=== PATIENT | female | born 1970 | race Two or more races ===

== ENCOUNTER 2024-07-06 09:34 | Inpatient (IN) | payer MEDICAID, SELFPAY ==
[2024-07-06] VITALS (7 sets, daily range): BP systolic 87–173; BP diastolic 46–91; PULSE 99–119; RESP 15–22; TEMP 36.9–39.5; O2SAT 94–100; BMI 49.3; BMI 54.0
--- NOTE | 2024-07-06 09:54 | PD.EDSKIN ---
ED Skin Abcess FB-RME/HPI General Chief complaint: Skin/Abscess/Foreign Body Stated complaint: Boil in private are for 7 days Time Seen by Provider: 07/06/24 09:44 Source: patient Arrival date/time: 07/06/24 09:34 54-year-old female with a history of hypertension and type 2 diabetes presents to the emergency room with a chief complaint of a boil in her vaginal area x 7 days Mode of arrival: ambulatory Limitations: no limitations Related Data Home Medications ?Medication ?Instructions ?Recorded ?Confirmed hydrochlorothiazide 25 mg tablet 25 mg PO QDAY 02/20/18 10/03/20 carvedilol 3.125 mg tablet 3.125 mg PO BID 06/15/20 10/03/20 ergocalciferol (vitamin D2) 1,250 1,250 mcg PO QWEEK 06/15/20 10/03/20 mcg (50,000 unit) capsule (Vitamin D2) metformin 500 mg tablet 500 mg PO QDAY 06/15/20 10/03/20 gabapentin 800 mg tablet 800 mg PO TID 10/03/20 10/03/20 Previous Rx's ?Medication ?Instructions ?Recorded ibuprofen 800 mg tablet 800 mg PO TID PRN pain #30 tabs 03/05/24 Allergies Allergy/AdvReac Type Severity Reaction Status Date / Time iodine Allergy Intermediate chest Verified 07/06/24 09:36 tightness, headache Review of Systems Review of Systems Systems Reviewed: All systems reviewed, normal except as documented Constitutional Constitutional: Reports system reviewed and no additional complaints, except as documented, Denies fatigue, Denies fever(s), Denies headache(s) and Denies weakness Eyes Eyes: Reports system reviewed and no additional complaints, except as documented, Denies blurry vision and Denies change in vision ENT Ears, Nose, Mouth, and Throat: Reports system reviewed and no additional complaints, except as documented, Denies otalgia, Denies headache(s), Denies nasal congestion, Denies throat swelling and Denies vertigo Cardiovascular Cardiovascular: Reports system reviewed and no additional complaints, except as documented, Denies chest pain, Denies dyspnea and Denies dyspnea on exertion Respiratory Respiratory: Reports system reviewed and no additional complaints, except as documented, Denies chest congestion, Denies cough, Denies dyspnea, Denies dyspnea on exertion and Denies wheezing Gastrointestinal Gastrointestinal: Reports system reviewed and no additional complaints, except as documented, Denies abdominal pain, Denies cramping, Denies nausea and Denies vomiting Genitourinary Genitourinary: Reports system reviewed and no additional complaints, except as documented, Reports pelvic pain, Reports vaginal discharge and Reports vaginal pruritus Musculoskeletal Musculoskeletal: Reports system reviewed and no additional complaints, except as documented and Denies back pain Integumentary/Breasts Skin/Breast: Reports system reviewed and no additional complaints, except as documented and Denies wounds Neurologic Neurologic: Reports system reviewed and no additional complaints, except as documented, Denies confusion, Denies headache(s), Denies lack of coordination, Denies vertigo and Denies weakness Psychiatric Psychiatric: Reports system reviewed and no additional complaints, except as documented, Denies anxiety, Denies confusion, Denies depression, Denies paranoia, Denies suicidal ideation and Denies tactile hallucinations Endocrine Endocrine: Reports system reviewed and no additional complaints, except as documented and Denies fatigue Hematologic/Lymphatic Hematologic/Lymphatic: Reports system reviewed and no additional complaints, except as documented and Denies lymphadenopathy Allergic/Immunologic Allergic/Immunologic: Reports system reviewed and no additional complaints, except as documented, Denies throat swelling, Denies urticaria and Denies wheezing ED Exam General Limitations: Present no limitations General appearance: Present alert and in no apparent distress Head Head exam: Present atraumatic Eye Eye exam: Present normal appearance, PERRL and EOMI ENT ENT exam: Present normal exam, normal oropharynx and mucous membranes moist Neck Neck exam: Present normal inspection, full ROM and trachea midline Chest Chest inspection: Present normal inspection and symmetric chest wall rise Respiratory Respiratory exam: Present normal lung sounds bilaterally Cardiovascular Cardiovascular exam: Present regular rate, normal rhythm and normal heart sounds Abdominal Exam Abdominal exam: Present soft and normal bowel sounds External exam: Present erythema and tenderness Expanded Exam OB exam: Present vulvar erythema, vulvar tenderness and other (Bartholin cyst) Extremities Exam Extremities exam: Present normal inspection and full ROM Back Exam Back exam: Present normal inspection and full ROM Neurological Exam Neurological exam: Present alert, oriented X3 and CN II-XII intact Psychiatric Psychiatric exam: Present normal affect and normal mood Skin Skin exam: Present warm, dry, intact and normal color Course Quality Measures Possible source: skin/soft tissue Blood cultures ordered: completed in ED Antibiotic ordered: Yes Pertinent labs: 07/06/24 11:32 Lactic Acid 2.3 H mMol/L (0.4-2.0) Procalcitonin 0.31 ng/ml (0.0-0.49) sepsis Orders Category Date Time Status COVID-19 Screening Questionnaire NOW Care 07/06/24 14:15 Active Decision to Admit X1 Care 07/06/24 14:15 Active Insert IV NOW Care 07/06/24 11:09 Active Consult to Gynecology Stat Cons 07/06/24 13:50 Ordered Consult to Gynecology Stat Cons 07/06/24 14:15 Ordered US soft tissue lower back abd Stat Exams 07/06/24 11:36 Completed Blood Culture (Lab) Stat Lab 07/06/24 11:32 Received CBC Stat Lab 07/06/24 11:32 Completed CMP [Comprehensive Metabolic Panel] Stat Lab 07/06/24 11:32 Completed Hemoglobin A1C [Glycohemoglobin w (eAG)] Stat Lab 07/06/24 11:32 Completed Lactate (Lactic Acid) Stat Lab 07/06/24 11:32 Completed Lactate (Lactic Acid) Stat Lab 07/06/24 14:16 Ordered Lactic Acid, 3 HR Stat Lab 07/06/24 14:42 Ordered Procalcitonin Stat Lab 07/06/24 11:32 Completed UA [Urinalysis] Stat Lab 07/06/24 10:55 Ordered Urine Culture Stat Lab 07/06/24 10:55 Ordered HYDROcodone*/APAP 5/325 [Berkley 5/325] Med 07/06/24 10:39 Discontinued 1 tab PO X1 ONE Ibuprofen Tab [Motrin Tab] Med 07/06/24 10:54 Discontinued 800 mg PO X1 ONE Lidocaine 1% 20 ml [Xylocaine 1% 20 ML] Med 07/06/24 09:52 Discontinued 20 ml INFL X1 ONE Morphine Inj Med 07/06/24 11:09 Discontinued 4 mg IVP X1 ONE Ondansetron Odt [Zofran Odt] Med 07/06/24 11:09 Discontinued 4 mg PO X1 ONE Piper/Tazo Inj [Zosyn Inj] 3.375 gm Med 07/06/24 11:10 Discontinued Sodium Chloride 0.9% (P) [Ns 0.9% (P)] 50 ml IV X1 Sodium Chloride 0.9% 1000 ml [Ns] 1,000 ml Med 07/06/24 11:10 Discontinued IV 999 mls/hr Sodium Chloride 0.9% 1000 ml [Ns] 1,000 ml Med 07/06/24 11:58 Discontinued IV 999 mls/hr Vancomycin Inj 1,000 mg Med 07/06/24 11:56 Discontinued Sodium Chloride 0.9% 250 ml [Ns] 250 ml IV X1 Vital Signs Vital signs: Vital Signs Temperature 99.3 F 07/06/24 09:50 Pulse Rate 119 H 07/06/24 09:50 Respiratory Rate 22 H 07/06/24 09:50 Blood Pressure 127/76 07/06/24 09:50 Pulse Oximetry (%) 95 07/06/24 09:50 Oxygen Delivery Method Room Air 07/06/24 09:50 O2 saturation 95% within normal limits Procedures -ED Abscess I/D Site: other (Vulva) Side (if applicable): left Local Anesthetic: lidocaine 1% Amount of anesthesia used (mL): 5 Technique: incised with #11 blade Amount of fluid expressed (mL): 4 Irrigation: Yes Packing used?: none Complications: bleeding Skin / Abscess / Foreign Body MDM Narrative MDM Narrative:: 54-year-old female with a history of hypertension and type 2 diabetes presents to the emergency room with a chief complaint of a boil in her vaginal area x 7 days. Clinically the patient appears nontoxic and in no apparent distress. Physical examination shows a Bartholin cyst. There is vulvar edema and swelling. An I&D was attempted but there was no pus that was drained from the area. Her FINISHING TECHNICIAN Dr. Ariza was consulted and she came into the room to attempt an I&D. She attempted an I&D which was also unsuccessful. An ultrasound of the vulvar area was completed and shows no abscess just edema. Patient was admitted to the hospitalist group for cellulitis Patient data External records reviewed:: [facility] previous records Clinical information provided by:: patient Social determinants that could affect healthcare access:: none Patient has the following chronic illnesses:: Type 2 diabetes and hypertension How is presenting disease/condition affected by chronic disease/condition?: exacerbated by Evaluation data The following diagnostics were reviewed and interpreted by me:: lab results and radiology exam(s) Lab and/or radiology exams considered but not ordered:: Labs and radiology exams considered and ordered Interpretation Summary: N/A Medications / Prescriptions Medications or Prescriptions considered but not ordered:: Medication given Medication administrations:: Medication Administration History Acetaminophen (Acetaminophen 325 Mg Tablet) 650 mg PO Q6H PRN PRN Reason: Fever >100.4 or pain Stop: 08/05/24 14:42 Hydrocodone Bitart/Acetaminophen (Hydrocodone/Apap 5/325 Tablet) 1 tab PO Q4HR PRN PRN Reason: PAIN SCALE 4-10(Mod-Sev Stop: 07/11/24 14:42 Dextrose (Dextrose 50%-Water Inj 50 Ml Syringe) 25 ml IV Q15MIN PRN PRN Reason: BG 50-70 responsive npo pt Stop: 08/05/24 14:52 Dextrose (Dextrose 50%-Water Inj 50 Ml Syringe) 50 ml IV Q15MIN PRN PRN Reason: BG <50 OR BG <70 & pt unresponsive Stop: 08/05/24 14:52 Enoxaparin Sodium (Enoxaparin Sod Inj 40 Mg/0.4 Ml Syringe) 40 mg SC QDAY ULICES Stop: 07/21/24 08:59 Glucagon (Glucagon Inj 1 Mg Vial) 1 mg IM Q15MIN PRN PRN Reason: BG <70, and no IV access Piperacillin Sod/Tazobactam (Sod 3.375 gm/ Sodium Chloride) 50 mls @ 100 mls/hr IV Q8HR ULICES Stop: 07/13/24 14:50 Vancomycin HCl 2,000 mg/ (Sodium Chloride) 500 mls @ 150 mls/hr IV X1 ONE Stop: 07/06/24 18:19 Insulin Human Lispro (Insulin Lispro (Admelog) 1 Unit/0.01 Ml Unit) 0 unit SC AC [facility]; Protocol Stop: 08/05/24 16:59 Ondansetron HCl (Ondansetron Inj 2 Mg/Ml Inj 2 Ml) 4 mg IV Q6H PRN; Protocol PRN Reason: NAUSEA OR VOMITING Stop: 08/05/24 14:42 Pharmacy Consult (Vancomycin Pharmacy To Dose 1 Each Each) 1 each IV QDAY ULICES Stop: 08/06/24 08:59 Discontinued Medications Hydrocodone Bitart/Acetaminophen (Hydrocodone/Apap 5/325 Tablet) 1 tab PO X1 ONE Stop: 07/06/24 10:40 Last Admin: 07/06/24 11:05 Dose: 1 tab Documented By: DEMI Sodium Chloride (Ns) 1,000 mls @ 999 mls/hr IV .Q1H1M ONE Stop: 07/06/24 12:10 Last Infusion: 07/06/24 13:00 Dose: Infused Documented By: Admin: 07/06/24 11:40 Dose: 999 mls/hr Documented By: DEMI Piperacillin Sod/Tazobactam (Sod 3.375 gm/ Sodium Chloride) 50 mls @ 100 mls/hr IV X1 ONE Stop: 07/06/24 11:39 Last Infusion: 07/06/24 13:16 Dose: Infused Documented By: Admin: 07/06/24 11:39 Dose: 100 mls/hr Documented By: DEMI Vancomycin HCl 1,000 mg/ (Sodium Chloride) 250 mls @ 150 mls/hr IV X1 ONE Stop: 07/06/24 13:35 Last Admin: 07/06/24 13:24 Dose: 150 mls/hr Documented By: DEMARCO Sodium Chloride (Ns) 1,000 mls @ 999 mls/hr IV .Q1H1M ONE Stop: 07/06/24 12:58 Last Admin: 07/06/24 13:24 Dose: 999 mls/hr Documented By: DEMARCO Ibuprofen (Ibuprofen Tab 400 Mg Tablet) 800 mg PO X1 ONE Stop: 07/06/24 10:55 Last Admin: 07/06/24 11:04 Dose: 800 mg Documented By: DEMI Lidocaine HCl (Lidocaine Hcl 1% 20 Ml Vial) 20 ml INFL X1 ONE Stop: 07/06/24 09:53 Last Admin: 07/06/24 11:06 Dose: 20 ml Documented By: DEMI Morphine Sulfate (Morphine Sulf Inj 10 Mg/Ml Vial) 4 mg IVP X1 ONE Stop: 07/06/24 11:10 Last Admin: 07/06/24 11:39 Dose: 4 mg Documented By: DEMI Ondansetron HCl (Ondansetron Odt 4 Mg Tabrap) 4 mg PO X1 ONE; Protocol Stop: 07/06/24 11:10 Last Admin: 07/06/24 11:40 Dose: 4 mg Documented By: DEMI Medication given Consultations Consultation(s) initiated? (list below): Yes Consultation #1 (Physician, Specialty, Details): Dr. Catherine FINISHING TECHNICIAN Time: 12:00 Diagnosis Skin/Abscess Differential Diagnosis: abscess of skin or subcutaneous tissue and other (Bartholin cyst) Most likely diagnosis given after review of the tests above:: Cellulitis of vulva Admission Indicated Admission indicated?: not indicated Admission Request Was there a request for admission?: Yes Admission Attestation Admission request attestation: Discussed case with [] from Hospitalist service regarding admission. Discussed patients ED course, exam findings, labs, and radiology results. The Hospitalist [agrees,declines] to accept the patient for admission. Disposition Plan Disposition Plan: Admit Discharge Plan Plan Patient Disposition: Admit Acute Care w/in Hospital Disposition Comment: Stable Problem List Clinical Impression: Vulvar cellulitis
[2024-07-06] MEDS: IBUPROFEN TAB 400 MG TABLET 800 MG PO (11:04)
[2024-07-06] MEDS: HYDROcodone/APAP 5/325 TABLET 1 TAB PO ×2 (11:05→21:23)
[2024-07-06] MEDS: LIDOCAINE HCL 1% 20 ML VIAL INFL (11:06)
--- NOTE | 2024-07-06 11:36 | XR_ITS ---
Examination: Portable some soft tissue perineum TECHNIQUE: High resolution grayscale sonographic images soft tissue perineum Exam date and time: July 06, 2024 1152 hours INDICATIONS: Left labial pain and swelling 7 days fever 4 days FINDINGS: Edema in the labial region but no fluid-filled abscess or cystic mass noted IMPRESSION: Edema in the labial region but no abscess depicted
[2024-07-06] MEDS: MORPHINE SULF INJ 10 MG/ML VIAL 4 MG IVP (11:39)
[2024-07-06] MEDS: PIPER/TAZO INJ 3.375 GM in SODIUM CHLORIDE 0.9% (P) 50 ML IV ×2 (11:39→21:22)
[2024-07-06] MEDS: SODIUM CHLORIDE 0.9% 1000 ML 1,000 ML 999 ML IV ×2 (11:40→13:24)
[2024-07-06] MEDS: ONDANSETRON ODT 4 MG TABRAP PO (11:40)
[2024-07-06 11:46] LABS: Lactate (Lactic Acid) 2.3 mMol/L (0.4-2.0)
[2024-07-06 11:57] LABS: Basophils # (Auto) 0.1 Thou/mm3 (0.0-0.2); Basophils % (Auto) 0 % (0-2.5); Eosinophils % (Auto) 0 % (0-10); Hematocrit 43.5 % (36.0-46.0); Hemoglobin 14.7 g/dL (12.0-16.0); Immature Granulocytes % (Auto) 1 % (0-0); Immature Granulocytes Auto 0.27 Thou/mm3 (0.00-0.00); Lymphocytes # (Auto) 2.1 Thou/mm3 (1.0-4.8); Lymphocytes % (Auto) 9 % (10-50); Mean Corpuscular HGB Conc 33.8 g/dl (31.0-37.0); Mean Corpuscular Hemoglobin 29.6 pg (25.0-35.0); Mean Corpuscular Volume 88 fL (80-100); Monocytes # (Auto) 1.1 Thou/mm3 (0.0-0.8); Monocytes % (Auto) 4 % (0-12); Neutrophils # (Auto) 21.6 Thou/mm3 (1.8-7.7); Neutrophils % (Auto) 86 % (37-80); Nucleated Red Blood Cell % 0 /100 WBC (0); Platelet Count 285 Thou/mm3 (140-440); RDW Standard Deviation 43.8 fL (36.4-46.3); Red Blood Count 4.97 Miln/mm3 (4.00-5.20); White Blood Count 25.2 Thou/mm3 (3.6-11.0)
[2024-07-06 12:13] LABS: Alanine Aminotransferase 13 U/L (10-49); Albumin, Serum 3.8 gm/dL (3.5-5.0); Albumin/Globulin Ratio 1.3 (1.2-2.2); Alkaline Phosphatase 87 U/L (46-116); Anion Gap 10 (7-16); Aspartate Amino Transferase 17 U/L (0-34); BUN/Creatinine Ratio 14 Ratio (12-20); Bilirubin,Total 0.8 mg/dL (0.3-1.2); Blood Urea Nitrogen 18 mg/dL (9-23); Calcium 8.7 mg/dL (8.3-10.6); Calcium (Corrected) 8.9 mg/dL (8.5-10.1); Carbon Dioxide 22.3 mMol/L (20.0-31.0); Chloride 103 mMol/L (98-107); Creatinine (Component) 1.3 mg/dL (0.6-1.3); Estimated Creatinine Clearance 72.6 mL/min (>60); Glucose 149 mg/dL (74-106); Osmolality,Calculated 275 (275-295); Potassium 3.6 mMol/L (3.4-5.1); Procalcitonin 0.31 ng/ml (0.0-0.49); Sodium 135 mMol/L (136-145); Total Protein 6.8 gm/dL (5.7-8.2); eGFR 49 See Note
[2024-07-06 12:14] LABS: Glucose Estimated Average 108 mg/dL (80-131); Hemoglobin A1C 5.4 % Hgb (4.8-6.0)
[2024-07-06] MEDS: Vancomycin Inj 1,000 MG in SODIUM CHLORIDE 0.9% 250 ML 250 ML 150 MG IV (13:24)
[2024-07-06 14:42] LABS: Reflex Lactate? Y
--- NOTE | 2024-07-06 14:44 | PC.NURSE ---
Patient states pain 9/10. Informed ER provider and received verbal order for 0.5 mg Hydromorphone.
[2024-07-06 15:10] LABS: Lactic Acid, 3 HR 1.1 mMol/L (0.4-2.0)
[2024-07-06] MEDS: SODIUM CHLORIDE 0.9% 1000 ML 1,000 ML 100 ML IV (15:49)
[2024-07-06] MEDS: HYDROmorphone INJ 2 MG/ML VIAL 0.5 MG IVP (15:50)
[2024-07-06] MEDS: Vancomycin Inj 2,000 MG in SODIUM CHLORIDE 0.9% 500 ML 500 ML 150 MG IV (15:50)
--- NOTE | 2024-07-06 16:51 | PC.CC ---
Pt Sera Young is a 54 yr old female, admitted to hospitalist services for vaginal boil. ASW met with pt at bedside to complete initial assessment. At time of encounter pts daughter Elaina Estrada [phone] is at bedside. Pt expressed verbal consent for ASW to proceed with assessment. PT is noted to be alert and oriented to person, place and situation. Pt expressed understanding admission orders. Pt able to confirm demographic information. Pt from home [address] in [place]. Pt identifies her daughter as surrogate DM. At baseline pt reports being independent with ambulation and completion of ADLs. Pt reports she is diabetic on Ozembic. Pt is not on dialysis. Pt does not require supplemental O2. Pt is followed by [facility] for primary care. At time of D/c pt will D/c home with family providing transport.
--- NOTE | 2024-07-06 17:25 | ESHP_ITS ---
<Statement entered by Horacio Mccullough MD - 07/06/24 18:22> This patient is a 54-year-old female with past medical history of type 2 diabetes and hypertension presented with pain and swelling in her left labia which were for a week associated with fever x 4 days ago. Initially patient noticed it to start with a tender spot and tried to pop it out but was unsuccessful. Patient was given pain management in the ED for this. Patient met SIRS criteria and was septic during admission. SPONGE MAKER was consulted and ultrasound was ordered which showed cellulitis/edema of the labia and it was recommended that as there is no abscess collection we do not need incision and drainage per SPONGE MAKER recommendation and only medical management was recommended including IV antibiotic therapy with vancomycin and Zosyn and following her blood cultures. Patient does have a elevated white count and fever spikes were reported at home. Pain management was optimized. Patient was explained that she will need maintenance fluids for her soft blood pressure and will hold her antihypertensives for now. Will follow-up with culture results tomorrow morning. All labs and orders were reviewed. I saw and examined the patient, and I agree with current management stated by Dr Leisa MD,PGY1. Plan of care was discussed with the attending physician and resident physician. Disclaimer: Despite multiple revisions, due to the dictation software being used, the document bellow may not be free of grammatical errors including phonetic/typographic errors. However, this does not deter from our commitment to providing health care in the patient's best interest in mind. Dr. Cash MD, PGY 2 Documentation for date of: 07/06/24 HPI History of Present Illness Chief complaint: Swelling/tenderness labia, associated fevers History of present illness: 54 y/o F with PMHx significant for HTN, type 2 diabetes [id number], presented to ED from home with chief complaint of labial swelling/tenderness for 1 week and associated fevers x 4 days. Patient was in her usual state of health until 1 week ago when she noticed firm tender spot on her left labia. Patient initially thought it was a pimple and tried to pop it without any results. A spot grew increasingly tender and larger, patient attempted to treat with warm compress believed to be a boil. 4 days ago patient developed fever and chills. In the ED drainage was attempted for was believed to be a cyst, unsuccessful. At time of exam patient denied pain and endorsed only minimal tenderness, patient received lidocaine and Pasco. Patient denied weakness, lethargy, chills, shortness of breath, nausea, vomiting. Endorsed decreased appetite for past few days, and severe tenderness full left labial region with movement/pressure. ED COURSE: Labs significant for: WBCs 25.2, BUN 18, creatinine 1.3, EGFR 49, lactic acid 2.3, Pro-Rosendo 0.31, UA unremarkable. Imaging significant for: Soft tissue ultrasound showing no abscess, edema in the labial region. Patient received 1 L bolus normal saline, lidocaine, morphine, Pasco, Zosyn, vancomycin in the ED. Drainage of suspected cyst was attempted without success. SPONGE MAKER was consulted, recommended admit to hospitalist team but wished to follow patient as consult. PMH: Hypertension, brt-quaqkro-xjcahukgw diabetes. PSH: Right ankle surgery, unclear reason. SH: Denies alcohol, tobacco, or recreational drug use. Allergies:?Iodine Medications: Gabapentin, hydrochlorothiazide, ibuprofen, metformin Review of Systems Review of Systems Systems Reviewed: All systems reviewed, normal except as documented Past Medical History Past Medical History Comments PMH COMMENT: PMH: Hypertension, oor-gzyftxj-nmbxdjycx diabetes. PSH: Right ankle surgery, unclear reason. SH: Denies alcohol, tobacco, or recreational drug use. Allergies:?Iodine Medications: Gabapentin, hydrochlorothiazide, ibuprofen, metformin Exam Vital Signs Temp Pulse Resp BP Pulse Ox O2 Del Method 98.7 F 102 H 20 96/70 100 Room Air 07/06/24 15:22 07/06/24 15:22 07/06/24 15:22 07/06/24 15:22 07/06/24 15:22 07/06/24 15:22 Narrative Exam PE: Gen: Well-developed and well-nourished. Obese. HEENT: NCAT, PERRLA, EOMI, MMM, anicteric conjunctivae. CVS: normal S1 and S2. RRR. No M/R/G. Resp: CTA B/L. No rhonchi, rales, crackles or wheezing. Abd: soft, non-tender, non-distended.. MSK: Good ROM in BUE & BLE. No edema or rash. : Left labia and inner thigh erythematous, tender. Neuro: CN II-XII grossly intact. Strength 5/5 in BUE & BLE. Alert and oriented x3. Psych: appropriate mood and affect. Results: Labs 07/09/24 04:26 07/09/24 04:26 Labs: Short CBC 07/06/24 Range/Units 11:32 WBC 25.2 H (3.6-11.0) Thou/mm3 Hgb 14.7 (12.0-16.0) g/dL Hct 43.5 (36.0-46.0) % Plt Count 285 (140-440) Thou/mm3 BMP 07/06/24 11:32 Sodium 135 L Potassium 3.6 Chloride 103 Carbon Dioxide 22.3 BUN 18 Creatinine 1.3 Glucose 149 H Calcium 8.7 Liver Function 07/06/24 Range/Units 11:32 Total Bilirubin 0.8 (0.3-1.2) mg/dL AST 17 (0-34) U/L ALT 13 (10-49) U/L Alkaline Phosphatase 87 (46-116) U/L Albumin 3.8 (3.5-5.0) gm/dL Quality Measures Quality Measures sepsis Current suspected stage: sepsis Possible source: skin/soft tissue Blood cultures ordered: completed in ED Antibiotic ordered: Yes Medications Home Medications and Allergies Home Medications ?Medication ?Instructions ?Recorded ?Confirmed ?Type hydrochlorothiazide 25 mg tablet 25 mg PO QDAY 02/20/18 07/07/24 History carvedilol 3.125 mg tablet 3.125 mg PO BID 06/15/20 10/03/20 History ergocalciferol (vitamin D2) 1,250 1,250 mcg PO QWEEK 06/15/20 10/03/20 History mcg (50,000 unit) capsule (Vitamin D2) metformin 500 mg tablet 500 mg PO QDAY 06/15/20 10/03/20 History gabapentin 800 mg tablet 800 mg PO BID 10/03/20 07/07/24 History cyclobenzaprine 10 mg tablet 10 mg PO TID 07/07/24 07/07/24 History trazodone 150 mg tablet,extended 300 mg PO HS 07/07/24 07/08/24 History release 24 hr Allergies Allergy/AdvReac Type Severity Reaction Status Date / Time iodine Allergy Intermediate chest Verified 07/06/24 09:36 tightness, headache Visit Medications Acetaminophen (Acetaminophen 325 Mg Tablet) 650 mg PO Q6H PRN; Protocol PRN Reason: Fever >100.4 or pain Stop: 08/05/24 14:42 Hydrocodone Bitart/Acetaminophen (Hydrocodone/Apap 5/325 Tablet) 1 tab PO Q4HR PRN PRN Reason: PAIN SCALE 4-10(Mod-Sev Stop: 07/11/24 14:42 Dextrose (Dextrose 50%-Water Inj 50 Ml Syringe) 25 ml IV Q15MIN PRN PRN Reason: BG 50-70 responsive npo pt Stop: 08/05/24 14:52 Dextrose (Dextrose 50%-Water Inj 50 Ml Syringe) 50 ml IV Q15MIN PRN PRN Reason: BG <50 OR BG <70 & pt unresponsive Stop: 08/05/24 14:52 Enoxaparin Sodium (Enoxaparin Sod Inj 40 Mg/0.4 Ml Syringe) 40 mg SC QDAY ULICES Stop: 07/21/24 08:59 Glucagon (Glucagon Inj 1 Mg Vial) 1 mg IM Q15MIN PRN PRN Reason: BG <70, and no IV access Piperacillin Sod/Tazobactam (Sod 3.375 gm/ Sodium Chloride) 50 mls @ 12.5 mls/hr IV Q8HR ULICES Stop: 07/13/24 21:59 Vancomycin HCl 2,000 mg/ (Sodium Chloride) 500 mls @ 150 mls/hr IV X1 ONE Stop: 07/06/24 18:19 Last Admin: 07/06/24 15:50 Dose: 10 mg/min, 150 mls/hr Sodium Chloride (Ns) 1,000 mls @ 100 mls/hr IV .Q10H ONE Stop: 07/07/24 01:32 Last Admin: 07/06/24 15:49 Dose: 100 mls/hr Insulin Human Lispro (Insulin Lispro (Admelog) 1 Unit/0.01 Ml Unit) 0 unit SC AC ULICES; Protocol Stop: 08/05/24 16:59 Morphine Sulfate (Morphine Sulf Inj 10 Mg/Ml Vial) 2 mg IVP Q4H PRN; Protocol PRN Reason: BREAKTHROUGH PAIN Stop: 07/11/24 15:32 Ondansetron HCl (Ondansetron Inj 2 Mg/Ml Inj 2 Ml) 4 mg IV Q6H PRN; Protocol PRN Reason: NAUSEA OR VOMITING Stop: 08/05/24 14:42 Pharmacy Consult (Vancomycin Pharmacy To Dose 1 Each Each) 1 each IV QDAY ULICES Stop: 08/06/24 08:59 Discontinued Medications Hydrocodone Bitart/Acetaminophen (Hydrocodone/Apap 5/325 Tablet) 1 tab PO X1 ONE Stop: 07/06/24 10:40 Last Admin: 07/06/24 11:05 Dose: 1 tab Hydromorphone HCl (Hydromorphone Inj 2 Mg/Ml Vial) 0.5 mg IVP X1 ONE Stop: 07/06/24 15:24 Last Admin: 07/06/24 15:50 Dose: 0.5 mg Sodium Chloride (Ns) 1,000 mls @ 999 mls/hr IV .Q1H1M ONE Stop: 07/06/24 12:10 Last Infusion: 07/06/24 13:00 Dose: Infused Piperacillin Sod/Tazobactam (Sod 3.375 gm/ Sodium Chloride) 50 mls @ 100 mls/hr IV X1 ONE Stop: 07/06/24 11:39 Last Infusion: 07/06/24 13:16 Dose: Infused Vancomycin HCl 1,000 mg/ (Sodium Chloride) 250 mls @ 150 mls/hr IV X1 ONE Stop: 07/06/24 13:35 Last Admin: 07/06/24 13:24 Dose: 150 mls/hr Sodium Chloride (Ns) 1,000 mls @ 999 mls/hr IV .Q1H1M ONE Stop: 07/06/24 12:58 Last Admin: 07/06/24 13:24 Dose: 999 mls/hr Ibuprofen (Ibuprofen Tab 400 Mg Tablet) 800 mg PO X1 ONE Stop: 07/06/24 10:55 Last Admin: 07/06/24 11:04 Dose: 800 mg Lidocaine HCl (Lidocaine Hcl 1% 20 Ml Vial) 20 ml INFL X1 ONE Stop: 07/06/24 09:53 Last Admin: 07/06/24 11:06 Dose: 20 ml Morphine Sulfate (Morphine Sulf Inj 10 Mg/Ml Vial) 4 mg IVP X1 ONE Stop: 07/06/24 11:10 Last Admin: 07/06/24 11:39 Dose: 4 mg Ondansetron HCl (Ondansetron Odt 4 Mg Tabrap) 4 mg PO X1 ONE; Protocol Stop: 07/06/24 11:10 Last Admin: 07/06/24 11:40 Dose: 4 mg Assessment & Plan Plan 54 y/o F with PMHx significant for HTN, type 2 diabetes [id number], presented to ED from home with chief complaint of labial swelling/tenderness for 1 week and associated fevers x 4 days, admitted for cellulitis. #Cellulitis #Sepsis Patient presenting with chief complaint fevers for several days associated with left labial tenderness and swelling. On physical exam patient was found to have erythema and tenderness of left labial region indicative of cellulitis. Patient met 2/4 SIRS criteria: Leukocytosis 25.2, tachycardia 113. Patient was afebrile in ED but reports several days of fevers. Received 1 L bolus normal saline in the ED, along with Zosyn and vancomycin. SPONGE MAKER consulted. Patient lactic acid elevated 2.3, resolved with IVF. Pro-Rosendo 0.31. -Vancomycin pharmacy dosing (started 07/06) -Zosyn 3.375 g IV every 8 hours (started 07/06) -Tylenol as needed for fevers or pain -Pasco 5 every 4 hours as needed for pain -Morphine 2 g IV every 4 hours as needed for breakthrough pain -SPONGE MAKER consulted, appreciate recommendations -IVF: Normal saline 100 mL/h x 1 L -Zofran as needed for nausea -Blood and urine cultures pending #Type 2 diabetes, patient history Patient history of diabetes, not insulin-dependent. A1c 5.4% as of 07/06/2024. -ISS #HTN, patient history Patient history hypertension, controlled with hydrochlorothiazide. Patient has not had high blood pressure during stay thus far. -Holding antihypertensives for now DVT prophylaxis: Lovenox GI prophylaxis: None Diet: Carb consistent Lines: Peripheral IV Code status: Full code Plan of care discussed with senior resident Dr. Mccullough PGY?[address] Hand. Duran De La Fuente MD PGY?1 Attending Provider Attestation/Addendum I attest that I was physically present for the evaluation, physical examination, lab and imaging review of the patient with the residents. I discussed the case with the residents and agree with the findings and plans of care as documented above. Patient is a 54 year old female with past medical history of type 2 diabetes and hypertension who presented to the ED with complaint of pain and swelling in her left labia associated with fever. Patient made SIRS criteria and received fluid bolus in the ED. SPONGE MAKER was consulted by the ED, recommended medical management and admission to inpatient services as there was no abscess on the Exam. We will admit the patient for management of sepsis secondary to labial cellulitis and start her on IV antibiotics, analgesics and fluids. Chela Hand MD
[2024-07-06 18:06] LABS: Lactate (Lactic Acid) 1.2 mMol/L (0.4-2.0)
--- NOTE | 2024-07-06 18:06 | PD.GYNCONS ---
NUMERICAL [employer]OL PROGRAMMER HPI Data of Consult Requesting Physician: Chela Hand MD Primary Care Provider: Carol Man MD Consult Narrative History of present illness: Sera is a 54 y/o female with T2DM who presented to the ED for worsening left vulvar swelling with associated pain for 1 week and associated fevers/chills x 4 days. Approximately 7 days ago she started to notice an area of swelling just outside of the vaginal canal when she wiped after voiding. She tried to treat it with warm compresses, but noticed the area continued to enlarge over time. She thought it still may resolve on its own, but 4 days ago she began to develop intermittent fever and chills. She notes that she had a similar episode in the remote past with diagnosis of Bartholin cyst/abscess. PMH: Hypertension, mmq-deziadp-pgdsxczlp diabetes, obesity PSH: Right ankle surgery SH: Denies alcohol, tobacco, or recreational drug use. Allergies:?Iodine Medications: Gabapentin, Hydrochlorothiazide, ibuprofen, Metformin cc:: cc: Chela Hand MD Review of Systems Review of Systems Systems Reviewed: All systems reviewed, normal except as documented Constitutional Constitutional: Reports chills, Reports fever(s) and Reports poor appetite Genitourinary Genitourinary: Denies difficulty voiding Meds Home Medications and Allergies Home Medications ?Medication ?Instructions ?Recorded ?Confirmed ?Type hydrochlorothiazide 25 mg tablet 25 mg PO QDAY 02/20/18 10/03/20 History carvedilol 3.125 mg tablet 3.125 mg PO BID 06/15/20 10/03/20 History ergocalciferol (vitamin D2) 1,250 1,250 mcg PO QWEEK 06/15/20 10/03/20 History mcg (50,000 unit) capsule (Vitamin D2) metformin 500 mg tablet 500 mg PO QDAY 06/15/20 10/03/20 History gabapentin 800 mg tablet 800 mg PO TID 10/03/20 10/03/20 History Allergies Allergy/AdvReac Type Severity Reaction Status Date / Time iodine Allergy Intermediate chest Verified 07/06/24 09:36 tightness, headache Exam - [employer]ICAL [employer]OL PROGRAMMER Vital Signs Temp Pulse Resp BP Pulse Ox O2 Del Method 98.7 F 102 H 20 96/70 100 Room Air 07/06/24 15:22 07/06/24 15:22 07/06/24 15:22 07/06/24 15:22 07/06/24 15:22 07/06/24 15:22 Narrative Exam General: well developed, well nourished, uncomfortable related to left vulva and unable to sit upright secondary to resulting pressure on the area Cardiac: tachycardia Lungs: breathing without distress Abdomen: soft, non-tender, no rebound or guarding Extremities: no BLE edema Genitalia: Large area of swelling (approx 15cm in A/P dimension) encompassing the left vulva with some residual swelling down onto left buttock (the whole area was demarcated with pen). NO CREPITUS. Prior area of attempted I&D noted on the lower aspect of the left vulva, hemostatic at time of my exam (but significant amount of blood on chucks pad, approx 50ml from the prior I&D attempt). No obvious Bartholin cyst/abscess. After discussing r/b/a and obtaining verbal consent, I cleansed an area closer toward the vaginal canal on the inner aspect of the left vulvar swelling, anesthetized with 1% lidocaine (approx 2cc) and made a stab incision 1cm in size. Needle nose grasper used to assess for pockets of loculation below the incised area, but there were no decipherable abscess pockets- swelling truly just related to edema- and procedure was terminated at that point. Minimal ebl approx 5cc and hemostatic after pressure applied. Patient tolerated procedure well. NUMERICAL [employer]OL TOOL PROGRAMMER - Results Labs 07/06/24 11:32 07/06/24 11:32 Labs: Short CBC 07/06/24 Range/Units 11:32 WBC 25.2 H (3.6-11.0) Thou/mm3 Hgb 14.7 (12.0-16.0) g/dL Hct 43.5 (36.0-46.0) % Plt Count 285 (140-440) Thou/mm3 BMP 07/06/24 11:32 Sodium 135 L Potassium 3.6 Chloride 103 Carbon Dioxide 22.3 BUN 18 Creatinine 1.3 Glucose 149 H Calcium 8.7 Liver Function 07/06/24 Range/Units 11:32 Total Bilirubin 0.8 (0.3-1.2) mg/dL AST 17 (0-34) U/L ALT 13 (10-49) U/L Alkaline Phosphatase 87 (46-116) U/L Albumin 3.8 (3.5-5.0) gm/dL Impressions Impression: Examination: Portable some soft tissue perineum TECHNIQUE: High resolution grayscale sonographic images soft tissue perineum Exam date and time: July 06, 2024 1152 hours INDICATIONS: Left labial pain and swelling 7 days fever 4 days FINDINGS: Edema in the labial region but no fluid-filled abscess or cystic mass noted IMPRESSION: Edema in the labial region but no abscess depicted Assessment and Plan Assessment and plan (1) Vulvar cellulitis: Status: Acute Assessment and plan: Sera is a 54yo female with left vulvar cellulitis and significant reactive edema leading to sepsis (tachycardia, fever, lactic acid 2.3, WBC count 25.2, pro-sherly 0.31, creatinine 1.3). Given unsuccessful attempt at I&D of left vulva, I discussed with radiologist best imaging modality to further assess and perineal/vulvar ultrasound was ordered which showed no abscess (only edema). No suspicion at this time for necrotizing fasciitis given exam and imaging findings. Best course of management is admission for IV antibiotic therapy and close observation. NUMERICAL [employer]OL [employer]OL PROGRAMMER recommendations for vulvar cellulitis: -IV Zosyn and Vancomycin per pharmacy protocol -Await blood cultures to further tailor antibiotics -Follow WBC count -The area of left vulvar/buttock induration was demarcated with pen, will continue to observe the area for improvement vs worsening -Management of sepsis and other co-morbidities (T2DM, HTN) per IM hospitalist service -Will continue to follow along Dr. Ariza (2) Sepsis: Status: Acute (3) Diabetes: Status: Acute (4) Hypertension: Status: Acute (5) Obesity: Status: Acute (2) Sepsis Qualifiers: Sepsis acute organ dysfunction status: without acute organ dysfunction Sepsis type: sepsis due to unspecified organism Qualified Code(s): A41.9 - Sepsis, unspecified organism (3) Diabetes Qualifiers: Diabetes mellitus complication status: without complication Diabetes mellitus superintendent terminal insulin use: without superintendent terminal use Diabetes mellitus type: type 2 Qualified Code(s): E11.9 - Type 2 diabetes mellitus without complications (4) Hypertension Qualifiers: Hypertension type: primary hypertension Qualified Code(s): I10 - Essential (primary) hypertension (5) Obesity Qualifiers: Body mass index: BMI 45.0-49.9 Obesity classification: adult class 3 (BMI >= 40) Obesity type: due to excess calories Serious obesity comorbidity presence: with serious comorbidity Qualified Code(s): E66.813 - Obesity, class 3; E66.01 - Morbid (severe) obesity due to excess calories; Z68.42 - Body mass index [BMI] 45.0-49.9, adult
[2024-07-06] MEDS: MORPHINE SULF INJ 10 MG/ML VIAL 2 MG IVP ×2 (18:15→19:59)
[2024-07-06] MEDS: INSULIN LISPRO (AdmeLOG) 1 UNIT/0.01 ML UNIT SC (18:15)
--- NOTE | 2024-07-06 20:02 | PC.NURSE ---
Report given to Narcisa AL in Med Surg via phone.
[2024-07-06 23:46] LABS: Collection Type, Urine Clean Catch
[2024-07-07] VITALS: BP 108/52; PULSE 114; RESP 20; TEMP 36.6; O2SAT 98
[2024-07-07 00:03] LABS: Bacteria,Urine 1+; Bilirubin,Urine Negative (Negative); Blood,Urine 2+ (Negative); Color,Urine Yellow (Lt Yel-Yel); Glucose, Urine Negative (Negative); Ketones,Urine Negative (Negative); Leukocyte Esterase,Urine Positive (Negative); Nitrite,Urine Negative (Negative); PH,Urine 5.5 (5.0-7.0); Protein,Urine Trace (Neg - Trace); RBC,Urine 5 /hpf (0-3); Specific Gravity,Urine 1.023 (1.001-1.035); Squamous Epithelial Cell,Urine 8 /hpf (0-5); WBC,Urine 24 /hpf (0-5)
[2024-07-07] MEDS: MORPHINE SULF INJ 10 MG/ML VIAL 2 MG IVP (00:09)
[2024-07-07 00:12] LABS: Clarity,Urine Hazy (Clear/Hazy)
[2024-07-07 04:00] VITALS: BP 143/76; PULSE 120; RESP 20; TEMP 37.6; O2SAT 94
[2024-07-07] MEDS: HYDROcodone/APAP 5/325 TABLET 1 TAB PO ×2 (05:38→10:26)
[2024-07-07] MEDS: PIPER/TAZO INJ 3.375 GM in SODIUM CHLORIDE 0.9% (P) 50 ML IV (05:39)
[2024-07-07 06:48] LABS: Basophils # (Auto) 0.1 Thou/mm3 (0.0-0.2); Basophils % (Auto) 0 % (0-2.5); Eosinophils # (Auto) 0.2 Thou/mm3 (0.0-0.5); Eosinophils % (Auto) 1 % (0-10); Hemoglobin 13.1 g/dL (12.0-16.0); Immature Granulocytes % (Auto) 2 % (0-0); Immature Granulocytes Auto 0.54 Thou/mm3 (0.00-0.00); Lymphocytes # (Auto) 2.4 Thou/mm3 (1.0-4.8); Lymphocytes % (Auto) 9 % (10-50); Mean Corpuscular HGB Conc 32.8 g/dl (31.0-37.0); Mean Corpuscular Hemoglobin 29.6 pg (25.0-35.0); Mean Corpuscular Volume 90 fL (80-100); Monocytes # (Auto) 1.5 Thou/mm3 (0.0-0.8); Monocytes % (Auto) 6 % (0-12); Neutrophils # (Auto) 20.8 Thou/mm3 (1.8-7.7); Neutrophils % (Auto) 82 % (37-80); Nucleated Red Blood Cell % 0 /100 WBC (0); Platelet Count 304 Thou/mm3 (140-440); RDW Standard Deviation 45.4 fL (36.4-46.3); Red Blood Count 4.43 Miln/mm3 (4.00-5.20); White Blood Count 25.4 Thou/mm3 (3.6-11.0)
[2024-07-07 07:17] LABS: Alanine Aminotransferase 22 U/L (10-49); Albumin, Serum 3.5 gm/dL (3.5-5.0); Albumin/Globulin Ratio 1.3 (1.2-2.2); Alkaline Phosphatase 105 U/L (46-116); Anion Gap 9 (7-16); Aspartate Amino Transferase 22 U/L (0-34); BUN/Creatinine Ratio 13 Ratio (12-20); Blood Urea Nitrogen 22 mg/dL (9-23); Calcium 8.3 mg/dL (8.3-10.6); Calcium (Corrected) 8.7 mg/dL (8.5-10.1); Carbon Dioxide 23.7 mMol/L (20.0-31.0); Chloride 103 mMol/L (98-107); Creatinine (Component) 1.7 mg/dL (0.6-1.3); Estimated Creatinine Clearance 58.8 mL/min (>60); Globulin 2.8 gm/dL (2.3-3.5); Glucose 122 mg/dL (74-106); Magnesium 1.6 mg/dL (1.6-2.6); Osmolality,Calculated 276 (275-295); Phosphorous 2.8 mg/dL (2.4-5.1); Potassium 3.5 mMol/L (3.4-5.1); Sodium 136 mMol/L (136-145); Total Protein 6.3 gm/dL (5.7-8.2); eGFR 35 See Note
[2024-07-07 08:00] VITALS: BP 99/75; PULSE 112; RESP 20; TEMP 36.1; O2SAT 95
--- NOTE | 2024-07-07 09:38 | PC.SS ---
SS follow up note; Pending OB consult and Blood cultures.
[2024-07-07] MEDS: RINGERS LACTATED 1000 ML 1,000 ML 999 ML IV (09:52)
[2024-07-07] MEDS: POTASSIUM CHLORIDE 20 mEq TABCR PO (09:52)
[2024-07-07] MEDS: HEPARIN SOD INJ 5000 UNIT/ML VIAL SC ×2 (09:53→21:01)
[2024-07-07] MEDS: Magnesium Sulfate 4 GM Ivpb 4 GM/50 ML BAG IV (10:26)
--- NOTE | 2024-07-07 10:28 | PD.GYNPROG ---
Documentation for date of: 07/07/24 PROFESSOR OF OCEANOGRAPHY Subjective Subjective Interval history: Sera is a 54 y/o female with T2DM admitted for management of left vulvar cellulitis with reactive edema (perineal ultrasound negative for abscess) and resulting sepsis. She was started on IV zosyn and vancomycin yesterday. Overnight she notes having had an episodes of chills, but currently does not have any chills or feel febrile. No issues with urination or PO tolerance. Still has pain related to the vulvar swelling and supine position is most comfortable to her. Exam Vital Signs Temp Pulse Resp BP Pulse Ox O2 Del Method 96.9 F 112 H 20 99/75 95 Room Air 07/07/24 08:00 07/07/24 08:00 07/07/24 08:00 07/07/24 08:00 07/07/24 08:00 07/07/24 08:00 Narrative Exam General: well developed, well nourished, unable to sit fully upright secondary to resulting pressure on vulva Cardiac: tachycardia Lungs: breathing without distress Abdomen: soft, non-tender, no rebound or guarding Extremities: no BLE edema Genitalia: Large area of swelling (approx 15cm in A/P dimension) encompassing the left vulva with some residual swelling down onto left buttock (the area was previously demarcated with pen and the area is unchanged). NO CREPITUS. Prior areas of attempted I&Ds noted with no bleeding or erythema. Urinary Catheter Management Cath placed during this visit: no PROFESSOR OF OCEANOGRAPHY - PN: Obj Data Labs 07/07/24 05:32 07/07/24 05:32 Labs: Laboratory Results - last 24 hr 07/06/24 07/06/24 07/06/24 11:32 14:55 18:00 WBC 25.2 H RBC 4.97 Hgb 14.7 Hct 43.5 MCV 88 MCH 29.6 MCHC 33.8 RDW Std Deviation 43.8 Plt Count 285 Neut % (Auto) 86 H Lymph % (Auto) 9 L [place] % (Auto) 4 Eos % (Auto) 0 Baso % (Auto) 0 Neut # (Auto) 21.6 H Lymph # (Auto) 2.1 [place] # (Auto) 1.1 H Eos # (Auto) 0.0 Baso # (Auto) 0.1 Immature Gran # (Auto) 0.27 H Absolute Nucleated RBC 0.00 Immature Gran % 1 H Nucleated RBC % 0 Sodium 135 L Potassium 3.6 Chloride 103 Carbon Dioxide 22.3 Anion Gap 10 BUN 18 Creatinine 1.3 Estim Creat Clear Calc 72.6 eGFR 49 L BUN/Creatinine Ratio [address] Glu mg/dL 108 Hemoglobin A1c 5.4 Calculated Osmolality 275 Lactic Acid 2.3 H 1.1 1.2 Calcium 8.7 Corrected Calcium 8.9 Phosphorus Magnesium Total Bilirubin 0.8 AST 17 ALT 13 Alkaline Phosphatase 87 Total Protein 6.8 Albumin 3.8 Globulin 3.0 Albumin/Globulin Ratio 1.3 Procalcitonin 0.31 Ur Collection Type Urine Color Urine Clarity Urine pH Ur Specific [place] Urine Protein Urine Glucose (UA) Urine Ketones Urine Blood Urine Nitrite Urine Bilirubin Urine Urobilinogen (Auto) Ur Leukocyte Esterase Urine RBC Urine WBC Ur Squamous Epith Cells Urine Bacteria 07/06/24 07/07/24 23:25 05:32 WBC 25.4 H RBC 4.43 Hgb 13.1 Hct 40.0 MCV 90 MCH 29.6 MCHC 32.8 RDW Std Deviation 45.4 Plt Count 304 Neut % (Auto) 82 H Lymph % (Auto) 9 L [place] % (Auto) 6 Eos % (Auto) 1 Baso % (Auto) 0 Neut # (Auto) 20.8 H Lymph # (Auto) 2.4 [place] # (Auto) 1.5 H Eos # (Auto) 0.2 Baso # (Auto) 0.1 Immature Gran # (Auto) 0.54 H Absolute Nucleated RBC 0.00 Immature Gran % 2 H Nucleated RBC % 0 Sodium 136 Potassium 3.5 Chloride 103 Carbon Dioxide 23.7 Anion Gap 9 BUN 22 Creatinine 1.7 H Estim Creat Clear Calc 58.8 L eGFR 35 L BUN/Creatinine Ratio 13 [address]ucose [address] Glu mg/dL Hemoglobin A1c Calculated Osmolality 276 Lactic Acid Calcium 8.3 Corrected Calcium 8.7 Phosphorus 2.8 Magnesium 1.6 Total Bilirubin 1.0 AST 22 ALT 22 Alkaline Phosphatase 105 D Total Protein 6.3 Albumin 3.5 Globulin 2.8 Albumin/Globulin Ratio 1.3 Procalcitonin Ur Collection Type Clean Catch Urine Color Yellow Urine Clarity Hazy Urine pH 5.5 Ur Specific [place] 1.023 Urine Protein Trace Urine Glucose (UA) Negative Urine Ketones Negative Urine Blood 2+ A Urine Nitrite Negative Urine Bilirubin Negative Urine Urobilinogen (Auto) 4.0 Ur Leukocyte Esterase Positive Urine RBC 5 H Urine WBC 24 H Ur Squamous Epith Cells 8 H Urine Bacteria 1+ A Impressions Impression: TECHNIQUE: High resolution grayscale sonographic images soft tissue perineum Exam date and time: July 06, 2024 1152 hours INDICATIONS: Left labial pain and swelling 7 days fever 4 days FINDINGS: Edema in the labial region but no fluid-filled abscess or cystic mass noted IMPRESSION: Edema in the labial region but no abscess depicted PROFESSOR OF OCEANOGRAPHY - A/P Assessment and plan (1) Vulvar cellulitis: Status: Acute Assessment and plan: Sera is a 54yo female with left vulvar cellulitis and significant reactive edema leading to sepsis (tachycardia, fever, lactic acid 2.3 initially, WBC count 25.2, pro-sherly 0.31, creatinine 1.3). Given unsuccessful attempt at I&D of left vulva, I discussed with radiologist best imaging modality to further assess and perineal/vulvar ultrasound was ordered which showed no abscess (only edema). No suspicion at this time for necrotizing fasciitis given exam and imaging findings. She was admitted for IV antibiotic therapy and close observation. Overnight she has continued to have tachycardia, WBC count essentially unchanged (25.4) and now creatinine 1.7. Area of left vulvar swelling remains unchanged. PROFESSOR OF OCEANOGRAPHY recommendations: -I spoke with IM care team regarding my recommendation for patient's transfer to a facility with PROFESSOR OF OCEANOGRAPHY-Oncology since lack of improvement over the past nearly 24hr indicates she may need large incision of vulva with deep debridement which is better suited in a higher level of care facility with Land Sales Agent-Oncology service. -Continue IV antibiotic therapy -Still awaiting blood cultures to further tailor antibiotics -Management of sepsis and other co-morbidities (T2DM, HTN) per IM hospitalist service -Will continue to follow along until patient transfer (2) Sepsis: Status: Acute (3) Diabetes: Status: Acute (4) Hypertension: Status: Acute (5) Obesity: Status: Acute Time Spent With Patient Time: Total time spent is greater than 50% in coordination of care (as documented) at patient's floor/unit and/or counseling patient: Time with patient: less than 15 minutes
[2024-07-07] MEDS: VANCOMYCIN/NS 1 GM IVPB 200 ML IV ×2 (10:33→22:39)
--- NOTE | 2024-07-07 11:23 | PC.CM ---
Addendum entered by Renetta Lee RN 07/07/24 18:55: Patient needs transfer for ICER MACHINE for cellulitis. [facility] declined patient due to capacity. [facility] in [place] is reviewing patient for placement. I was able to get authorization from Agueda at [facility]. Transfer packet started with CD. I handed off to M/S charge nurse. Addendum entered by Renetta Lee RN 07/07/24 17:17: 1720 I called and I provided the information to Maggy at [facility]. She states she will also reach out to [facility] to verify they are willing cover transfer. 1705 I spoke to Agueda at [facility] and she states they are the payer for the transfer. I let her know I also reached out to [facility] and they also verified the payer should be [facility]. 1652 I spoke to [email or web address] phone # [phone] and I spoke to Jordana Omer. She looked up patient and she states the health plan [facility] would be the one to fiber picker the bill for the transfer. Addendum entered by Renetta Lee RN 07/07/24 16:34: 1530 I reviewed chart and I found patient is also with [facility]. 1510 I called and spoke to Agueda with [facility] [phone]. Agueda states she if fine with sending patient to [facility] if they are able to accept. 1410 I received a call back from [facility] and they stated we would need to get authorization to transfer patient. Maggy stated she spoke to her ICER MACHINE oncology doctor and they felt patient would be more appropriate for ICER MACHINE service. Maggy states she presented the case to ICER MACHINE and she is interested in the case. [facility] would have to present to patient their hospitalist and if they accept, then we would have to wait for an open bed. Addendum entered by Renetta Lee RN 07/07/24 12:21: 1220 I faxed information to [facility] in [place] and initiated a transfer. 1210 [facility] transfer nurse called me back stating they are going to decline patient due to capacity. Original Note: 1026 I received a referral to transfer patient for ICER MACHINE and oncology. Patient had a soft tissue infection of the left labial region. states patient will need a facility for deep evacuation of the left labial region. contacted [facility] and initiated a transfer. I pushed over images. I stated packet and made a CD.
[2024-07-07 12:00] VITALS: BP 91/70; PULSE 113; RESP 19; TEMP 36.2; O2SAT 99
[2024-07-07 12:16] LABS: Lactate (Lactic Acid) 1.2 mMol/L (0.4-2.0)
[2024-07-07] MEDS: SODIUM CHLORIDE 0.9% 1000 ML 1,000 ML 100 ML IV ×2 (13:22→23:39)
[2024-07-07] MEDS: CEFEPIME INJ 1 GM in SODIUM CHLORIDE 0.9% (P) 50 ML IV ×2 (13:28→21:01)
[2024-07-07] MEDS: ONDANSETRON INJ 2 MG/ML INJ 2 ML 4 MG IV (14:52)
[2024-07-07 16:00] VITALS: BP 117/80; PULSE 124; RESP 18; TEMP 36.3; O2SAT 94
--- NOTE | 2024-07-07 16:26 | ESPR_ITS ---
<Statement entered by Horacio Mccullough MD - 07/07/24 16:46> Patient was seen and examined at the bedside. Patient reported that she has pain in her lower pelvis and reported to have more swelling at her labia. Morning vitals showed blood pressure on softer side. White count continues to remain elevated at 23.4. Electrolyte panel showed hypokalemia with potassium 3.5. Kidney functions showed HUSAM with BUN 22 and creatinine 1.7. Blood sugars were within normal limits. We discontinued Lovenox and morphine as the patient received morphine yesterday x 3. Currently awaiting on blood cultures and MRSA screen. Will continue with broad-spectrum antibiotic vancomycin and Zosyn. Lpc, Dr. Ariza recommended that the patient will need deep incision and drainage due to worsening sepsis and possible will require higher care facility as she would need OB gemologist with oncology for possible procedure and we should work on transfer. Transfer nurse said that we are working currently on the process and will likely keep us updated as for now we do not have any facility for acceptance. Will continue to monitor blood pressure continue with IV antibiotic therapy added fluids for soft blood pressure and will follow the culture results. Patient was updated. All labs and orders were reviewed. I saw and examined the patient, and I agree with current management stated by Dr Leisa MD,PGY1. Plan of care was discussed with the attending physician and resident physician. Disclaimer: Despite multiple revisions, due to the dictation software being used, the document bellow may not be free of grammatical errors including phonetic/typographic errors. However, this does not deter from our commitment to providing health care in the patient's best interest in mind. Dr. Jamel MD, PGY 2 Documentation for date of: 07/07/24 Subjective Subjective Interval history: No overnight events. Patient seen and examined at bedside. Patient resting somewhat comfortably in bed, notes pain in left vaginal area despite pain medication. Notes chills overnight. Denies chest pain, shortness of breath, weakness. HUSAM worsening, additional fluid ordered. JUMP ROLL OPERATOR recommending transfer to facility with JUMP ROLL OPERATOR?oncology for a deep evacuation due to cellulitis not resolving. Exam Vital Signs Temp Pulse Resp BP Pulse Ox O2 Del Method 97.2 F 113 H 19 91/70 99 Room Air 07/07/24 12:00 07/07/24 12:00 07/07/24 12:00 07/07/24 12:00 07/07/24 12:00 07/07/24 12:00 Narrative Exam PE: Gen: Well-developed and well-nourished. Obese. HEENT: NCAT, PERRLA, EOMI, MMM, anicteric conjunctivae. CVS: normal S1 and S2. RRR. No M/R/G. Resp: CTA B/L. No rhonchi, rales, crackles or wheezing. Abd: soft, non-tender, non-distended. MSK: Good ROM in BUE & BLE. No edema or rash. : Left labia and inner thigh erythematous, tender, firm. Lower pubic region tender, nonpitting edema. Neuro: CN II-XII grossly intact. Strength 5/5 in BUE & BLE. Alert and oriented x3. Psych: appropriate mood and affect. Objective Labs 07/09/24 04:26 07/09/24 04:26 Labs: Laboratory Results - last 24 hr 07/06/24 07/06/24 07/07/24 18:00 23:25 05:32 WBC 25.4 H RBC 4.43 Hgb 13.1 Hct 40.0 MCV 90 MCH 29.6 MCHC 32.8 RDW Std Deviation 45.4 Plt Count 304 Neut % (Auto) 82 H Lymph % (Auto) 9 L [place] % (Auto) 6 Eos % (Auto) 1 Baso % (Auto) 0 Neut # (Auto) 20.8 H Lymph # (Auto) 2.4 [place] # (Auto) 1.5 H Eos # (Auto) 0.2 Baso # (Auto) 0.1 Immature Gran # (Auto) 0.54 H Absolute Nucleated RBC 0.00 Immature Gran % 2 H Nucleated RBC % 0 Sodium 136 Potassium 3.5 Chloride 103 Carbon Dioxide 23.7 Anion Gap 9 BUN 22 Creatinine 1.7 H Estim Creat Clear Calc 58.8 L eGFR 35 L BUN/Creatinine Ratio 13 Glucose 122 H Calculated Osmolality 276 Lactic Acid 1.2 Calcium 8.3 Corrected Calcium 8.7 Phosphorus 2.8 Magnesium 1.6 Total Bilirubin 1.0 AST 22 ALT 22 Alkaline Phosphatase 105 D Total Protein 6.3 Albumin 3.5 Globulin 2.8 Albumin/Globulin Ratio 1.3 Ur Collection Type Clean Catch Urine Color Yellow Urine Clarity Hazy Urine pH 5.5 Ur Specific [place] 1.023 Urine Protein Trace Urine Glucose (UA) Negative Urine Ketones Negative Urine Blood 2+ A Urine Nitrite Negative Urine Bilirubin Negative Urine Urobilinogen (Auto) 4.0 Ur Leukocyte Esterase Positive Urine RBC 5 H Urine WBC 24 H Ur Squamous Epith Cells 8 H Urine Bacteria 1+ A 07/07/24 12:09 WBC RBC Hgb Hct MCV MCH MCHC RDW Std Deviation Plt Count Neut % (Auto) Lymph % (Auto) [place] % (Auto) Eos % (Auto) Baso % (Auto) Neut # (Auto) Lymph # (Auto) [place] # (Auto) Eos # (Auto) Baso # (Auto) Immature Gran # (Auto) Absolute Nucleated RBC Immature Gran % Nucleated RBC % Sodium Potassium Chloride Carbon Dioxide Anion Gap BUN Creatinine Estim Creat Clear Calc eGFR BUN/Creatinine Ratio Glucose Calculated Osmolality Lactic Acid 1.2 Calcium Corrected Calcium Phosphorus Magnesium Total Bilirubin AST ALT Alkaline Phosphatase Total Protein Albumin Globulin Albumin/Globulin Ratio Ur Collection Type Urine Color Urine Clarity Urine pH Ur Specific [place] Urine Protein Urine Glucose (UA) Urine Ketones Urine Blood Urine Nitrite Urine Bilirubin Urine Urobilinogen (Auto) Ur Leukocyte Esterase Urine RBC Urine WBC Ur Squamous Epith Cells Urine Bacteria Quality Measures Quality Measures sepsis Current suspected stage: sepsis Possible source: skin/soft tissue Blood cultures ordered: completed in ED Antibiotic ordered: Yes Assessment & Plan Assessment Current Active Medications: Generic Name Dose Route Start Last Admin Trade Name Freq PRN Reason Stop Dose Admin Acetaminophen 650 mg 07/06/24 14:43 Acetaminophen 325 Mg Tablet PO 08/05/24 14:42 Q6H PRN Fever >100.4 or pain Protocol Hydrocodone Bitart/Acetaminophen 1 tab 07/06/24 14:43 07/07/24 10:26 Hydrocodone/Apap 5/325 Tablet PO 07/11/24 14:42 1 tab Q4HR PRN Administration PAIN SCALE 4-10(Mod-Sev Dextrose 25 ml 07/06/24 14:53 Dextrose 50%-Water Inj 50 Ml Syringe IV 08/05/24 14:52 Q15MIN PRN BG 50-70 responsive npo pt Dextrose 50 ml 07/06/24 14:53 Dextrose 50%-Water Inj 50 Ml Syringe IV 08/05/24 14:52 Q15MIN PRN BG <50 OR BG <70 & pt unresponsive Glucagon 1 mg 07/06/24 14:53 Glucagon Inj 1 Mg Vial IM Q15MIN PRN BG <70, and no IV access Heparin Sodium (Porcine) 5,000 unit 07/07/24 09:00 07/07/24 09:53 Heparin Sod Inj 5000 Unit/Ml Vial SC 07/21/24 08:59 5,000 unit Q12HR ULICES Administration Hydromorphone HCl 1 mg 07/07/24 08:36 Hydromorphone Inj 2 Mg/Ml Vial IVP 07/12/24 08:35 Q4HR PRN BREAKTHROUGH PAIN Protocol Vancomycin/Sodium Chloride 200 mls @ 120 mls/hr 07/07/24 10:00 07/07/24 10:33 Vancomycin/Ns 1 Gm Ivpb IV 07/14/24 09:59 120 mls/hr BID@1000,2200 ULICES Administration Protocol Sodium Chloride 1,000 mls @ 100 mls/hr 07/07/24 10:26 07/07/24 13:22 Ns IV 08/06/24 10:25 100 mls/hr .Q10H ULICES Administration Cefepime HCl 1 gm/ Sodium 50 mls @ 100 mls/hr 07/07/24 11:00 07/07/24 13:28 Chloride IV 07/14/24 10:59 100 mls/hr Q8HR ULICES Administration Insulin Human Lispro 0 unit 07/06/24 17:00 07/07/24 11:30 Insulin Lispro (Admelog) 1 Unit/0.01 Ml Unit SC 08/05/24 16:59 Not Given AC ULICES Protocol Ondansetron HCl 4 mg 07/06/24 14:43 07/07/24 14:52 Ondansetron Inj 2 Mg/Ml Inj 2 Ml IV 08/05/24 14:42 4 mg Q6H PRN Administration NAUSEA OR VOMITING Protocol Pharmacy Consult 1 each 07/07/24 09:00 Vancomycin Pharmacy To Dose 1 Each Each IV 08/06/24 08:59 QDAY PRN PROTOCOL Plan 54 y/o F with PMHx significant for HTN, type 2 diabetes [id number], presented to ED from home with chief complaint of labial swelling/tenderness for 1 week and associated fevers x 4 days, admitted for cellulitis. #Cellulitis #Sepsis Patient presenting with chief complaint fevers for several days associated with left labial tenderness and swelling. On physical exam patient was found to have erythema and tenderness of left labial region indicative of cellulitis. Patient met 2/4 SIRS criteria: Leukocytosis 25.2, tachycardia 113. Patient was afebrile in ED but reports several days of fevers. Received 1 L bolus normal saline in the ED, along with Zosyn and vancomycin. JUMP ROLL OPERATOR consulted. Patient lactic acid elevated 2.3, resolved with IVF. Pro-Rosendo 0.31. Patient looked slightly worse on physical exam: Lower pubic region now edematous (nonpitting) and tender, left inner thigh and left labia more edematous and firm. JUMP ROLL OPERATOR consult recommends transfer to facility with JUMP ROLL OPERATOR?oncology for deep evacuation of infection. Transfer pending. -Vancomycin pharmacy dosing (started 07/06) -Zosyn 3.375 g IV every 8 hours (07/06?07/07) -Cefepime 1 g IV every 8 hours (started 07/07) -Tylenol as needed for fevers or pain -[place] 5 every 4 hours as needed for pain -Dilaudid 1 g IV every 4 hours as needed for breakthrough pain -JUMP ROLL OPERATOR consulted, appreciate recommendations -Zofran as needed for nausea -Blood and urine cultures pending -Transfer to facility with JUMP ROLL OPERATOR?oncology #HUSAM Patient presented with BUN 18 and creatinine 1.3, increased to BUN 22 and creatinine 1.7, eGFR 35. Possible etiology includes prerenal due to dehydration, potential ATN due to soft/low BP in setting of sepsis. 1 L bolus lactated Ringer's given. -IVF: Normal saline 100 mL/h x 1 L -Avoid nephrotoxins as much as possible -Renally dose meds -Daily labs #Type 2 diabetes, patient history Patient history of diabetes, not insulin-dependent. A1c 5.4% as of 07/06/2024. -ISS #HTN, patient history Patient history hypertension, controlled with hydrochlorothiazide. Patient has not had high blood pressure during stay thus far. -Holding antihypertensives for now DVT prophylaxis: Heparin GI prophylaxis: None Diet: Carb consistent Lines: Peripheral IV Code status: Full code Plan of care discussed with senior resident Dr. Mccullough PGY?[address] Hand. Duran De La Fuente MD PGY?1 Attending Provider Attestation/Addendum I attest that I was physically present for the evaluation, physical examination, lab and imaging review of the patient with the residents. I discussed the case with the residents and agree with the findings and plans of care as documented above. At bedside, patient states her pain is better compared to yesterday and is controlled with analgesics. But she is noted have increasing swelling on exam. WBC counts also noted to be elevated, has worsening kidney function. Discussed with JUMP ROLL OPERATOR Dr. Ariza who recommended that the patient might need transfer to higher center for deep incision and drainage due to concern for expanding swelling, worsening sepsis. Transfer nurse notified and transfer process started. Continues to be on IV antibiotics and analgesics. We will discontinue/avoid nephrotoxins. Awaiting culture results. Chela Hand MD
[2024-07-07 20:00] VITALS: BP 103/54; PULSE 93; RESP 20; TEMP 36.9; O2SAT 98
[2024-07-07] MEDS: traZODone HCL 50 MG TABLET 150 MG PO (20:56)
[2024-07-07] MEDS: ACETAMINOPHEN 325 MG TABLET 650 MG PO (21:00)
[2024-07-08] VITALS: BP 121/73; PULSE 101; RESP 20; TEMP 36.6; O2SAT 94
--- NOTE | 2024-07-08 | XR_ITS ---
Examination: MRI pelvis, without contrast Date and time of exam: 25 at 1455 hours INDICATIONS: Left labial swelling beginning 4 days ago Technique: Multiple axial sagittal and coronal images of the pelvis have been obtained with the Siemens high-resolution 1.5 Marjorie MRI scanner. Images obtained include T2-weighted fat-suppressed sagittal sections, TR 3500, TE 46, T2 weighted coronal fat suppressed images, TR 3050, TE 84, T2-weighted transverse fat suppressed images, TR 3260, TE 63, proton density transverse images, TR 4720 TE 46, and T1 weighted coronal images, TR 560, TE 13. Findings: Extensive cellulitis infectious change involving the left labia extending into the anterior lower pelvic wall on both the right and left sides Irregular fluid collections in the left labia although no discrete drainable fluid-filled abscess This inflammatory change extends to the left perianal region No free fluid in the pelvis Urinary bladder intact Anteverted atrophic uterus Endometrial stripe is not thickened No ovarian mass No common iliac and external iliac or common femoral lymphadenopathy IMPRESSION: Extensive soft tissue cellulitis infectious change involving the left labia extending into the anterior lower pelvic wall on both the right and left sides Minimal irregular fluid collections in the left labia but no discrete drainable fluid-filled abscess This infectious inflammatory change does extend to the left perianal region, repeating this study with intravenous gadolinium may help in assessing for perianal fistulous tract, as clinically warranted
[2024-07-08 04:00] VITALS: BP 127/79; PULSE 109; RESP 20; TEMP 36.7; O2SAT 94
[2024-07-08] MEDS: CEFEPIME INJ 1 GM in SODIUM CHLORIDE 0.9% (P) 50 ML IV ×2 (06:01→13:29)
[2024-07-08 06:13] LABS: Basophils # (Auto) 0.1 Thou/mm3 (0.0-0.2); Basophils % (Auto) 0 % (0-2.5); Eosinophils # (Auto) 0.1 Thou/mm3 (0.0-0.5); Eosinophils % (Auto) 0 % (0-10); Hematocrit 35.6 % (36.0-46.0); Hemoglobin 12.3 g/dL (12.0-16.0); Immature Granulocytes % (Auto) 1 % (0-0); Immature Granulocytes Auto 0.31 Thou/mm3 (0.00-0.00); Lymphocytes % (Auto) 9 % (10-50); Mean Corpuscular HGB Conc 34.6 g/dl (31.0-37.0); Mean Corpuscular Hemoglobin 30.4 pg (25.0-35.0); Mean Corpuscular Volume 88 fL (80-100); Monocytes # (Auto) 1.1 Thou/mm3 (0.0-0.8); Monocytes % (Auto) 5 % (0-12); Neutrophils # (Auto) 19.2 Thou/mm3 (1.8-7.7); Neutrophils % (Auto) 84 % (37-80); Nucleated Red Blood Cell % 0 /100 WBC (0); Platelet Count 339 Thou/mm3 (140-440); RDW Standard Deviation 44.5 fL (36.4-46.3); Red Blood Count 4.05 Miln/mm3 (4.00-5.20); White Blood Count 22.8 Thou/mm3 (3.6-11.0)
[2024-07-08 06:41] LABS: Alanine Aminotransferase 14 U/L (10-49); Albumin, Serum 3.3 gm/dL (3.5-5.0); Albumin/Globulin Ratio 1.2 (1.2-2.2); Alkaline Phosphatase 108 U/L (46-116); Anion Gap 6 (7-16); BUN/Creatinine Ratio 11 Ratio (12-20); Bilirubin,Total 0.9 mg/dL (0.3-1.2); Blood Urea Nitrogen 16 mg/dL (9-23); Calcium 8.3 mg/dL (8.3-10.6); Calcium (Corrected) 8.9 mg/dL (8.5-10.1); Carbon Dioxide 23.1 mMol/L (20.0-31.0); Chloride 105 mMol/L (98-107); Creatinine (Component) 1.4 mg/dL (0.6-1.3); Estimated Creatinine Clearance 71.4 mL/min (>60); Globulin 2.7 gm/dL (2.3-3.5); Glucose 119 mg/dL (74-106); Magnesium 2.1 mg/dL (1.6-2.6); Osmolality,Calculated 270 (275-295); Phosphorous 2.7 mg/dL (2.4-5.1); Potassium 3.4 mMol/L (3.4-5.1); Sodium 134 mMol/L (136-145); eGFR 44 See Note
[2024-07-08 06:58] LABS: Aspartate Amino Transferase < 8 U/L (0-34)
--- NOTE | 2024-07-08 07:55 | PC.NURSE ---
Gram positive coccy result reported to Dr. Trivedi.
[2024-07-08 08:00] VITALS: BP 126/84; PULSE 102; RESP 18; TEMP 36.3; O2SAT 93
--- NOTE | 2024-07-08 08:33 | PC.CM ---
Addendum entered by Renetta Lee RN 07/08/24 17:04: I received a call from Dr. Ariza and Dr. Dos Santos and they both states patient has improved a they are going to cancel the transfer request. I contacted [facility] and canceled the transfer request. Addendum entered by Renetta Lee RN 07/08/24 15:18: 1400 Doctors stated during rounding that they were going to order an MRI of the pelvis. Addendum entered by Renetta Lee RN 07/08/24 11:23: I received a call from Maggy at [facility]. She states her VP RESEARCH doctor declined patient due to the fact they would not do anything more that what we are doing at out facility. Maggy presented the patient to [facility]C and they recommended getting a CT so they could better evaluate the need for transfer. I presented the information to Dr. Dos Santos. Addendum entered by Renetta Lee RN 07/08/24 10:24: I received a call from Maggy at [facility]. she called to verify type of bed needed and she asked for updated VS. I provided information. Original Note: I spoke to Maggy with [facility] to follow-up on transfer. She states she will reach out Agueda at [facility] to make sure they are okay with transfer. She states she will then reach out to her hospitalist to have them peer to peer call. She asked that I fax updated information. I faxed over paperwork.
[2024-07-08 09:36] LABS: C-Reactive Protein 27.8 mg/dL (0.0-0.9); Vancomycin,Trough 10.8 mcg/mL (5.0-10.0)
[2024-07-08] MEDS: CLINDAMYCIN 900MG IVPB 50 ML 100 MG IV ×2 (10:19→17:36)
[2024-07-08] MEDS: HEPARIN SOD INJ 5000 UNIT/ML VIAL SC ×2 (10:20→21:03)
[2024-07-08] MEDS: POTASSIUM CHLORIDE 20 mEq TABCR PO (10:27)
--- NOTE | 2024-07-08 10:53 | PD.GYNPROG ---
Documentation for date of: 07/08/24 PURCHASING DIRECTOR Subjective Subjective Interval history: Sera reports feeling better. Still not much appetite (she notes she has also been eating less somewhat to deter a bowel movement since she has worried having a BM might make the infectious process in the vulvar area worse). No BM since admission, but not eating much. She is voiding without issue. Ambulating without lightheadedness. She notes pain has improved- did not require any IV pain medications overnight. Exam Vital Signs Temp Pulse Resp BP Pulse Ox O2 Del Method 97.4 F 102 H 18 126/84 93 L Room Air 07/08/24 08:00 07/08/24 08:00 07/08/24 08:00 07/08/24 08:00 07/08/24 08:00 07/08/24 08:00 Narrative Exam General: well developed, well nourished, conversant Cardiac: tachycardia Lungs: breathing without distress Abdomen: soft, non-tender, no rebound or guarding Extremities: no BLE edema Genitalia: Significant left vulvar swelling with some residual swelling down onto left buttock (the area was previously demarcated with pen and the area is unchanged). Large area of swelling over mons pubis. No erythema. NO CREPITUS. Prior areas of attempted I&Ds noted with no bleeding or erythema, no obvious drainage. Urinary Catheter Management Cath placed during this visit: no PURCHASING DIRECTOR - PN: Obj Data Labs 07/08/24 04:57 07/08/24 04:57 Labs: Laboratory Results - last 24 hr 07/07/24 07/08/24 07/08/24 12:09 04:57 08:30 WBC 22.8 H RBC 4.05 Hgb 12.3 Hct 35.6 L MCV 88 MCH 30.4 MCHC 34.6 RDW Std Deviation 44.5 Plt Count 339 D Neut % (Auto) 84 H Lymph % (Auto) 9 L [place] % (Auto) 5 Eos % (Auto) 0 Baso % (Auto) 0 Neut # (Auto) 19.2 H Lymph # (Auto) 2.0 [place] # (Auto) 1.1 H Eos # (Auto) 0.1 Baso # (Auto) 0.1 Immature Gran # (Auto) 0.31 H Absolute Nucleated RBC 0.00 Immature Gran % 1 H Nucleated RBC % 0 Sodium 134 L Potassium 3.4 Chloride 105 Carbon Dioxide 23.1 Anion Gap 6 L BUN 16 Creatinine 1.4 H Estim Creat Clear Calc 71.4 eGFR 44 L BUN/Creatinine Ratio 11 L Glucose 119 H Calculated Osmolality 270 L Lactic Acid 1.2 Calcium 8.3 Corrected Calcium 8.9 Phosphorus 2.7 Magnesium 2.1 Total Bilirubin 0.9 AST < 8 ALT 14 Alkaline Phosphatase 108 C-Reactive Prot, Quant 27.8 H Total Protein 6.0 Albumin 3.3 L Globulin 2.7 Albumin/Globulin Ratio 1.2 Vancomycin Trough 10.8 H Impressions Impression: Examination: Portable some soft tissue perineum TECHNIQUE: High resolution grayscale sonographic images soft tissue perineum Exam date and time: July 06, 2024 1152 hours INDICATIONS: Left labial pain and swelling 7 days fever 4 days FINDINGS: Edema in the labial region but no fluid-filled abscess or cystic mass noted IMPRESSION: Edema in the labial region but no abscess depicted PURCHASING DIRECTOR - A/P Assessment and plan (1) Vulvar cellulitis: Status: Acute Assessment and plan: Sera is a 54yo female with left vulvar/mons infectious process and significant reactive edema leading to septic picture (tachycardia, fever, lactic acid 2.3 initially, WBC count 25.2, pro-sherly 0.31, creatinine 1.3). Given unsuccessful attempt at I&D of left vulva, I discussed with radiologist best imaging modality to further assess and perineal/vulvar ultrasound was ordered which showed no abscess (only edema). Not as obvious previously secondary to habitus, but the infectious process involves the mons. No erythema, but significant swelling of mons and left vulva. No suspicion at this time for necrotizing fasciitis given exam and imaging findings. She was admitted for IV antibiotic therapy and close observation. Blood cultures negative x24hr WBC count slightly improved to 22.8 from 25.4. Creatinine also improved to 1.4 from 1.7. Lactic acid 1.2 on 07/07 She remains afebrile with mild tachycardia. PURCHASING DIRECTOR recommendations: -Continue with transfer to [facility] for surgical intervention -Continue IV antibiotic therapy -Still awaiting blood cultures to further tailor antibiotics -Management of sepsis and other co-morbidities (T2DM, HTN) per IM hospitalist service -Will continue to follow along until patient transfer Elsa Ariza MD (2) Sepsis: Status: Acute (3) Diabetes: Status: Acute (4) Hypertension: Status: Acute (5) Obesity: Status: Acute Time Spent With Patient Time: Total time spent is greater than 50% in coordination of care (as documented) at patient's floor/unit and/or counseling patient: Time with patient: 25 - 35 minutes
[2024-07-08] MEDS: VANCOMYCIN/WATER 1250 MG IVPB 250 ML 120 MG IV ×2 (11:19→21:09)
[2024-07-08 12:00] VITALS: BP 120/78; PULSE 110; RESP 19; TEMP 36.8; O2SAT 94
--- NOTE | 2024-07-08 12:24 | PC.NURSE ---
made aware of pt allergy to iodione and an order of ct with contrast ordered. md to look into order
[2024-07-08] MEDS: SODIUM CHLORIDE 0.9% 1000 ML 1,000 ML 100 ML IV ×2 (13:29→17:38)
[2024-07-08 16:00] VITALS: BP 136/75; PULSE 90; RESP 20; TEMP 37.2; O2SAT 93
--- NOTE | 2024-07-08 16:35 | ESPR_ITS ---
<Statement entered by Horacio Mccullough MD - 07/08/24 21:32> Patient was seen and examined at the bedside. Patient reported that she feels slightly decreased pain as compared to yesterday. She was using cold compresses which popped up her vagina boil and pus came out. MRI pelvis was ordered for following up if patient is having necrotizing fasciitis.MRI showed extensive cellulitis but no necrotizing fasciitis or drainable pockets. ASSEMBLER [employer] recommended that we should keep the patient here and canceled the transfer process as patient can be managed medically here in this hospital. Will continue with IV antibiotic therapy and cold compresses and optimized pain management. Currently we are giving cefepime 1 g every 8 hourly and vancomycin and added clindamycin for antitoxin effect. Blood cultures are coming negative. Electrolytes were repleted. Kidney functions are improving since yesterday. We are continuing with IV fluid therapy. All labs and orders were reviewed. I saw and examined the patient, and I agree with current management stated by Dr Leisa MD,PGY1. Plan of care was discussed with the attending physician and resident physician. Disclaimer: Despite multiple revisions, due to the dictation software being used, the document bellow may not be free of grammatical errors including phonetic/typographic errors. However, this does not deter from our commitment to providing health care in the patient's best interest in mind. Dr. Jamel MD, PGY 2 Documentation for date of: 07/08/24 Subjective Subjective Interval history: No overnight events. Patient seen and examined at bedside. Patient resting somewhat comfortably in chair, notes pain in left vaginal area despite pain medication. Notes chills overnight. Denies chest pain, shortness of breath, weakness. Patient reports rupture of firm nodule of cellulitis, with foul-smelling purulent drainage. Drainage stopped by time of exam. MRI showed extensive cellulitis but no necrotizing fasciitis or drainable pockets. Patient will stay here for medical management. Exam Vital Signs Temp Pulse Resp BP Pulse Ox O2 Del Method 98.9 F 90 20 136/75 H 93 L Room Air 07/08/24 16:00 07/08/24 16:00 07/08/24 16:00 07/08/24 16:00 07/08/24 16:07/08/24 16:00 Narrative Exam PE: Gen: Well-developed and well-nourished. Obese. HEENT: NCAT, PERRLA, EOMI, MMM, anicteric conjunctivae. CVS: normal S1 and S2. RRR. No M/R/G. Resp: CTA B/L. No rhonchi, rales, crackles or wheezing. Abd: soft, non-tender, non-distended. MSK: Good ROM in BUE & BLE. No edema or rash. : Left labia and inner thigh erythematous, tender, firm. Lower pubic region tender, nonpitting edema, erythematous. Neuro: CN II-XII grossly intact. Strength 5/5 in BUE & BLE. Alert and oriented x3. Psych: appropriate mood and affect. Objective Labs 07/08/24 04:57 07/08/24 04:57 Labs: Laboratory Results - last 24 hr 07/08/24 07/08/24 04:57 08:30 WBC 22.8 H RBC 4.05 Hgb 12.3 Hct 35.6 L MCV 88 MCH 30.4 MCHC 34.6 RDW Std Deviation 44.5 Plt Count 339 D Neut % (Auto) 84 H Lymph % (Auto) 9 L [place] % (Auto) 5 Eos % (Auto) 0 Baso % (Auto) 0 Neut # (Auto) 19.2 H Lymph # (Auto) 2.0 [place] # (Auto) 1.1 H Eos # (Auto) 0.1 Baso # (Auto) 0.1 Immature Gran # (Auto) 0.31 H Absolute Nucleated RBC 0.00 Immature Gran % 1 H Nucleated RBC % 0 Sodium 134 L Potassium 3.4 Chloride 105 Carbon Dioxide 23.1 Anion Gap 6 L BUN 16 Creatinine 1.4 H Estim Creat Clear Calc 71.4 eGFR 44 L BUN/Creatinine Ratio 11 L Glucose 119 H Calculated Osmolality 270 L Calcium 8.3 Corrected Calcium 8.9 Phosphorus 2.7 Magnesium 2.1 Total Bilirubin 0.9 AST < 8 ALT 14 Alkaline Phosphatase 108 C-Reactive Prot, Quant 27.8 H Total Protein 6.0 Albumin 3.3 L Globulin 2.7 Albumin/Globulin Ratio 1.2 Vancomycin Trough 10.8 H Quality Measures Quality Measures sepsis Current suspected stage: sepsis Possible source: skin/soft tissue Blood cultures ordered: completed in ED Antibiotic ordered: Yes Assessment & Plan Assessment Current Active Medications: Generic Name Dose Route Start Last Admin Trade Name Freq PRN Reason Stop Dose Admin Acetaminophen 650 mg 07/06/24 14:43 07/07/24 21:00 Acetaminophen 325 Mg Tablet PO 08/05/24 14:42 650 mg Q6H PRN Administration Fever >100.4 or pain Protocol Hydrocodone Bitart/Acetaminophen 1 tab 07/06/24 14:43 07/07/24 10:26 Hydrocodone/Apap 5/325 Tablet PO 07/11/24 14:42 1 tab Q4HR PRN Administration PAIN SCALE 4-10(Mod-Sev Dextrose 25 ml 07/06/24 14:53 Dextrose 50%-Water Inj 50 Ml Syringe IV 08/05/24 14:52 Q15MIN PRN BG 50-70 responsive npo pt Dextrose 50 ml 07/06/24 14:53 Dextrose 50%-Water Inj 50 Ml Syringe IV 08/05/24 14:52 Q15MIN PRN BG <50 OR BG <70 & pt unresponsive Glucagon 1 mg 07/06/24 14:53 Glucagon Inj 1 Mg Vial IM Q15MIN PRN BG <70, and no IV access Heparin Sodium (Porcine) 5,000 unit 07/07/24 09:00 07/08/24 10:20 Heparin Sod Inj 5000 Unit/Ml Vial SC 07/21/24 08:59 5,000 unit Q12HR ULICES Administration Hydromorphone HCl 1 mg 07/07/24 08:36 Hydromorphone Inj 2 Mg/Ml Vial IVP 07/12/24 08:35 Q4HR PRN BREAKTHROUGH PAIN Protocol Sodium Chloride 1,000 mls @ 100 mls/hr 07/07/24 10:26 07/08/24 13:29 Ns IV 08/06/24 10:25 100 mls/hr .Q10H ULICES Administration Clindamycin Phosphate 50 mls @ 100 mls/hr 07/08/24 08:01 07/08/24 10:19 Cleocin/D5w Ivpb IV 07/15/24 08:00 100 mls/hr Q8HR ULICES Administration Cefepime HCl 1 gm/ Sodium 50 mls @ 100 mls/hr 07/08/24 22:00 Chloride IV 07/14/24 10:59 Q8HR ULICES Vancomycin HCl 250 mls @ 120 mls/hr 07/08/24 10:00 07/08/24 11:19 Vancomycin/Water 1250 Mg Ivpb IV 07/15/24 09:59 120 mls/hr Q12H ULICES Administration Protocol Insulin Human Lispro 0 unit 07/06/24 17:00 07/08/24 12:10 Insulin Lispro (Admelog) 1 Unit/0.01 Ml Unit SC 08/05/24 16:59 Not Given AC ULICES Protocol Ondansetron HCl 4 mg 07/06/24 14:43 07/07/24 14:52 Ondansetron Inj 2 Mg/Ml Inj 2 Ml IV 08/05/24 14:42 4 mg Q6H PRN Administration NAUSEA OR VOMITING Protocol Pharmacy Consult 1 each 07/07/24 09:00 Vancomycin Pharmacy To Dose 1 Each Each IV 08/06/24 08:59 QDAY PRN PROTOCOL Trazodone HCl 150 mg 07/07/24 21:00 07/07/24 20:56 Trazodone Hcl 50 Mg Tablet PO 08/06/24 20:59 150 mg HS ULICES Administration Plan 54 y/o F with PMHx significant for HTN, type 2 diabetes [id number], presented to ED from home with chief complaint of labial swelling/tenderness for 1 week and associated fevers x 4 days, admitted for cellulitis. #Cellulitis #Sepsis Patient presenting with chief complaint fevers for several days associated with left labial tenderness and swelling. On physical exam patient was found to have erythema and tenderness of left labial region indicative of cellulitis. Patient met 2/4 SIRS criteria: Leukocytosis 25.2, tachycardia 113. Patient was afebrile in ED but reports several days of fevers. Received 1 L bolus normal saline in the ED, along with Zosyn and vancomycin. ASSEMBLER [employer] consulted. Patient lactic acid elevated 2.3, resolved with IVF. Pro-Rosendo 0.31. Patient looked slightly worse on physical exam: Lower pubic region now edematous (nonpitting) and tender, left inner thigh and left labia more edematous and firm. ASSEMBLER [employer] consult recommended transfer to facility with ASSEMBLER [employer] PIPES?oncology for deep evacuation of infection. MRI pelvis showed extensive cellulitis with no excising fasciitis or pockets amenable to drainage. Transfer canceled, patient to remain for medical management. Initial blood cultures grew GPC in 1/2 bottles. Repeat blood cultures drawn -Vancomycin pharmacy dosing (started 07/06) -Clindamycin 900 mg IV 3 times daily (started 07/08) -Cefepime 1 g IV every 8 hours (started 07/07) -Tylenol as needed for fevers or pain -[place] 5 every 4 hours as needed for pain -Dilaudid 1 g IV every 4 hours as needed for breakthrough pain -ASSEMBLER [employer] consulted, appreciate recommendations -Zofran as needed for nausea -Blood and urine cultures pending #HUSAM Patient presented with BUN 18 and creatinine 1.3, increased to BUN 22 and creatinine 1.7, eGFR 35. Possible etiology includes prerenal due to dehydration, potential ATN due to soft/low BP in setting of sepsis. 1 L bolus lactated Ringer's given. HUSAM improving with IVF. -Patient receiving IVF: 100 mL/h normal saline, x 1 L/day -Avoid nephrotoxins as much as possible -Renally dose meds -Daily labs #Type 2 diabetes, patient history Patient history of diabetes, not insulin-dependent. A1c 5.4% as of 07/06/2024. -ISS #HTN, patient history Patient history hypertension, controlled with hydrochlorothiazide. Patient has not had high blood pressure during stay thus far. -Holding antihypertensives for now DVT prophylaxis: Heparin GI prophylaxis: None Diet: Carb consistent Lines: Peripheral IV Code status: Full code Plan of care discussed with senior resident Dr. Mccullough PGY?[address] Solorio. Duran De La Fuente MD PGY?1 Attending Provider Attestation/Addendum I have discussed and was present for the essential components of the history, physical examination, diagnosis, and treatment plan with the resident. I agree with the patient's care as documented by the resident and amended herein by me. Nii Solorio DO. Patient seen and evaluated this AM. Patient has no subjective complaints in the morning, states pain is mostly controlled with an ice pack. Vital signs stable, patient afebrile overnight, significant labs include a WBC of 22.8, sodium 134, potassium 3.4, BUN 16 and creatinine 1.4 which is down trended from previous day. Blood cultures negative thus far. Patient was pending transfer down to [facility] however CT imaging was requested however due to patient's iodine allergy, we did obtain an MRI of the patient's pelvis which demonstrated extensive soft tissue cellulitis infectious changes involving the left labia extending into the anterior lower pelvic wall on both the right and left sides. Minimal irregular fluid collections in the left labia but no discrete drainable fluid filled abscess. No infectious inflammatory changes extending into the left perianal region were noted. Considering imaging finding, patient can be managed here, will continue IV antibiotics for now and monitor for continued improvement. ASSEMBLER [employer] consulted, appreciate recommendations. Although this document has been carefully reviewed, there may still be some phonetic and other typographical errors. These errors are purely grammatical due to imperfections in the software program and should not be construed in any way to compromise the substance of the patient's medical care during this visit.
[2024-07-08] MEDS: HYDROcodone/APAP 5/325 TABLET 1 TAB PO (19:22)
[2024-07-08 20:00] VITALS: BP 119/70; PULSE 104; RESP 20; TEMP 36.3; O2SAT 95
[2024-07-08] MEDS: traZODone HCL 50 MG TABLET 150 MG PO (21:03)
[2024-07-08] MEDS: CEFEPIME INJ 1 GM in SODIUM CHLORIDE 0.9% 50 ML IV (21:08)
[2024-07-09] VITALS: BP 110/65; PULSE 93; RESP 20; TEMP 36.4; O2SAT 91
[2024-07-09 04:00] VITALS: BP 107/65; PULSE 98; RESP 20; TEMP 36.6; O2SAT 91
[2024-07-09] MEDS: SODIUM CHLORIDE 0.9% 1000 ML 1,000 ML 100 ML IV ×2 (05:02→16:58)
[2024-07-09] MEDS: CEFEPIME INJ 1 GM in SODIUM CHLORIDE 0.9% 50 ML IV ×3 (05:02→20:56)
[2024-07-09 05:36] LABS: Basophils # (Auto) 0.1 Thou/mm3 (0.0-0.2); Basophils % (Auto) 1 % (0-2.5); Eosinophils # (Auto) 0.2 Thou/mm3 (0.0-0.5); Eosinophils % (Auto) 1 % (0-10); Hemoglobin 11.8 g/dL (12.0-16.0); Immature Granulocytes % (Auto) 1 % (0-0); Immature Granulocytes Auto 0.23 Thou/mm3 (0.00-0.00); Lymphocytes # (Auto) 1.9 Thou/mm3 (1.0-4.8); Lymphocytes % (Auto) 10 % (10-50); Mean Corpuscular HGB Conc 33.7 g/dl (31.0-37.0); Mean Corpuscular Hemoglobin 29.6 pg (25.0-35.0); Mean Corpuscular Volume 88 fL (80-100); Monocytes # (Auto) 1.2 Thou/mm3 (0.0-0.8); Monocytes % (Auto) 6 % (0-12); Neutrophils # (Auto) 15.9 Thou/mm3 (1.8-7.7); Neutrophils % (Auto) 81 % (37-80); Nucleated Red Blood Cell % 0 /100 WBC (0); Platelet Count 308 Thou/mm3 (140-440); RDW Standard Deviation 44.2 fL (36.4-46.3); Red Blood Count 3.98 Miln/mm3 (4.00-5.20); White Blood Count 19.6 Thou/mm3 (3.6-11.0)
--- NOTE | 2024-07-09 06:13 | PC.NURSE ---
Pt alert able to voice needs GCS 15 call light with in reach. No c/o pain or discomfort at this time. Respirations even and unlabored. Cont. iv abx no ar noted or reported by pt. Possible HLOC pending. Pt aware of plan of care. Safety reviewed, call light with in reach.
[2024-07-09 06:14] LABS: Alanine Aminotransferase 11 U/L (10-49); Albumin, Serum 3.2 gm/dL (3.5-5.0); Albumin/Globulin Ratio 1.3 (1.2-2.2); Alkaline Phosphatase 106 U/L (46-116); Anion Gap 8 (7-16); BUN/Creatinine Ratio 11 Ratio (12-20); Bilirubin,Total 0.6 mg/dL (0.3-1.2); Blood Urea Nitrogen 14 mg/dL (9-23); Calcium 8.3 mg/dL (8.3-10.6); Calcium (Corrected) 8.9 mg/dL (8.5-10.1); Carbon Dioxide 24.9 mMol/L (20.0-31.0); Chloride 106 mMol/L (98-107); Creatinine (Component) 1.3 mg/dL (0.6-1.3); Estimated Creatinine Clearance 76.8 mL/min (>60); Globulin 2.5 gm/dL (2.3-3.5); Glucose 111 mg/dL (74-106); Magnesium 2.2 mg/dL (1.6-2.6); Osmolality,Calculated 279 (275-295); Phosphorous 2.7 mg/dL (2.4-5.1); Potassium 3.6 mMol/L (3.4-5.1); Sodium 139 mMol/L (136-145); Total Protein 5.7 gm/dL (5.7-8.2); eGFR 49 See Note
[2024-07-09 06:32] LABS: Aspartate Amino Transferase < 10 U/L (0-34)
[2024-07-09 08:00] VITALS: BP 131/88; PULSE 67; RESP 18; TEMP 36.3; O2SAT 93
[2024-07-09] MEDS: HEPARIN SOD INJ 5000 UNIT/ML VIAL SC ×2 (08:24→20:49)
[2024-07-09] MEDS: LACTULOSE SYRUP 20 GM/30 ML UDC PO (08:26)
[2024-07-09] MEDS: VANCOMYCIN/WATER 1250 MG IVPB 250 ML 120 MG IV ×2 (10:01→22:03)
--- NOTE | 2024-07-09 11:03 | PC.SS ---
Rounding: Pending Blood cultures, on IV ABX
[2024-07-09 12:00] VITALS: BP 131/94; PULSE 92; RESP 18; TEMP 36.4; O2SAT 95
--- NOTE | 2024-07-09 13:31 | PD.GYNPROG ---
Documentation for date of: 07/09/24 MAINTENANCE INSTRUCTOR Subjective Subjective Interval history: Sera is feeling better. She has better appetite today. Notes swelling in her mons area has appreciably improved. Minimal discomfort now. No issues with ambulation or urination. Exam Vital Signs Temp Pulse Resp BP Pulse Ox O2 Del Method 97.3 F 67 18 131/88 H 93 L Room Air 07/09/24 08:00 07/09/24 08:00 07/09/24 08:00 07/09/24 08:00 07/09/24 08:00 07/09/24 08:00 Narrative Exam General: well developed, well nourished, conversant Cardiac: mild tachycardia Lungs: breathing without distress Abdomen: soft, non-tender, no rebound or guarding Extremities: no BLE edema Genitalia: Significant left vulvar swelling with some residual swelling down onto left buttock (the area was previously demarcated with pen and the area is unchanged). Large area of swelling over mons pubis is more supple today. No erythema or discoloration. NO CREPITUS. Prior areas of attempted I&Ds noted with no bleeding or erythema, no obvious drainage. Urinary Catheter Management Cath placed during this visit: no MAINTENANCE INSTRUCTOR - PN: Obj Data Labs 07/09/24 04:26 07/09/24 04:26 Labs: Laboratory Results - last 24 hr 07/09/24 04:26 WBC 19.6 H RBC 3.98 L Hgb 11.8 L Hct 35.0 L MCV 88 MCH 29.6 MCHC 33.7 RDW Std Deviation 44.2 Plt Count 308 D Neut % (Auto) 81 H Lymph % (Auto) 10 [place] % (Auto) 6 Eos % (Auto) 1 Baso % (Auto) 1 Neut # (Auto) 15.9 H Lymph # (Auto) 1.9 [place] # (Auto) 1.2 H Eos # (Auto) 0.2 Baso # (Auto) 0.1 Immature Gran # (Auto) 0.23 H Absolute Nucleated RBC 0.00 Immature Gran % 1 H Nucleated RBC % 0 Sodium 139 Potassium 3.6 Chloride 106 Carbon Dioxide 24.9 Anion Gap 8 BUN 14 Creatinine 1.3 Estim Creat Clear Calc 76.8 eGFR 49 L BUN/Creatinine Ratio 11 L Glucose 111 H Calculated Osmolality 279 Calcium 8.3 Corrected Calcium 8.9 Phosphorus 2.7 Magnesium 2.2 Total Bilirubin 0.6 AST < 10 ALT 11 Alkaline Phosphatase 106 Total Protein 5.7 Albumin 3.2 L Globulin 2.5 Albumin/Globulin Ratio 1.3 Impressions Impression: Examination: MRI pelvis, without contrast Date and time of exam: 25 at 1455 hours INDICATIONS: Left labial swelling beginning 4 days ago Technique: Multiple axial sagittal and coronal images of the pelvis have been obtained with the Siemens high-resolution 1.5 Marjorie MRI scanner. Images obtained include T2-weighted fat-suppressed sagittal sections, TR 3500, TE 46, T2 weighted coronal fat suppressed images, TR 3050, TE 84, T2-weighted transverse fat suppressed images, TR 3260, TE 63, proton density transverse images, TR 4720 TE 46, and T1 weighted coronal images, TR 560, TE 13. Findings: Extensive cellulitis infectious change involving the left labia extending into the anterior lower pelvic wall on both the right and left sides Irregular fluid collections in the left labia although no discrete drainable fluid-filled abscess This inflammatory change extends to the left perianal region No free fluid in the pelvis Urinary bladder intact Anteverted atrophic uterus Endometrial stripe is not thickened No ovarian mass No common iliac and external iliac or common femoral lymphadenopathy IMPRESSION: Extensive soft tissue cellulitis infectious change involving the left labia extending into the anterior lower pelvic wall on both the right and left sides Minimal irregular fluid collections in the left labia but no discrete drainable fluid-filled abscess This infectious inflammatory change does extend to the left perianal region, repeating this study with intravenous gadolinium may help in assessing for perianal fistulous tract, as clinically warranted MAINTENANCE INSTRUCTOR - A/P Assessment and plan (1) Vulvar cellulitis: Status: Acute Assessment and plan: Sera is a 54yo female with left vulvar/mons infectious process and significant reactive edema leading to SIRS (tachycardia, fever, lactic acid 2.3 initially, WBC count 25.2, pro-sherly 0.31, creatinine 1.3), receiving IV antibiotic therapy. Unsuccessful attempt at I&D of left vulva. Perineal/vulvar ultrasound was ordered initially which showed no abscess (only edema). Patient reported spontaneous drainage from the vulva and pelvic/abdominal MRI performed after that on 07/08/24 again confirmed no abscess, just extensive cellulitis. On exam, there continues to be no erythema, but significant swelling of mons and left vulva- swelling of mons is improved today, more supple. There continues to be NO suspicion for necrotizing fasciitis given exam and imaging findings. Blood cultures negative x48hr WBC count continues to improve: 19.6 from 22.8 Creatinine also improved: 1.3 from 1.4. She remains afebrile with mild tachycardia. MAINTENANCE INSTRUCTOR recommendations: -Continue IV antibiotic therapy, switch to PO therapy for discharge when appropriate -Management of SIRS and other co-morbidities (T2DM, HTN) per IM hospitalist service -MAINTENANCE INSTRUCTOR will sign off for now. Please re-consult if indicated. Elsa Ariza MD (2) Sepsis: Status: Acute (3) Diabetes: Status: Acute (4) Hypertension: Status: Acute (5) Obesity: Status: Acute Time Spent With Patient Time: Total time spent is greater than 50% in coordination of care (as documented) at patient's floor/unit and/or counseling patient: Time with patient: less than 15 minutes
--- NOTE | 2024-07-09 15:20 | ESPR_ITS ---
<Statement entered by Horacio Mccullough MD - 07/09/24 20:46> Patient was seen and examined at the bedside. Patient said that she has been feeling better since admission and still having discharge from vaginal boil. Blood cultures have been coming negative for first 24 hours. We are currently continuing cefepime vancomycin and cold compresses. HUSAM has been resolving. Holding off IV fluids for now. New blood cultures, negative. DC'd clindamycin as necrotizing fasciitis was ruled out. No acute overnight events reported and no fever spike recorded. White count significantly improved. Patient is improving every day. Will likely closely monitor. All labs and orders were reviewed. I saw and examined the patient, and I agree with current management stated by Dr Leisa MD,PGY1. Plan of care was discussed with the attending physician and resident physician. Disclaimer: Despite multiple revisions, due to the dictation software being used, the document bellow may not be free of grammatical errors including phonetic/typographic errors. However, this does not deter from our commitment to providing health care in the patient's best interest in mind. Dr. Cash MD, PGY 2 Documentation for date of: 07/09/24 Subjective Subjective Interval history: No overnight events. Patient reports continued minimal drainage of foul-smelling purulent fluid from left labia. No discharge appreciated on exam, but signs of staining on patient's john. Patient otherwise reports subjective improvement in symptoms, less tenderness/swelling to left labia, improved appetite. Denies fevers, chills, chest pain. Continue IV antibiotics for now. RIVER CROSSING SUPERVISOR has signed off on this patient. Exam Vital Signs Temp Pulse Resp BP Pulse Ox O2 Del Method 97.6 F 92 18 131/94 H 95 Room Air 07/09/24 12:00 07/09/24 12:00 07/09/24 12:00 07/09/24 12:00 07/09/24 12:00 07/09/24 12:00 Narrative Exam PE: Gen: Well-developed and well-nourished. Obese. HEENT: NCAT, PERRLA, EOMI, MMM, anicteric conjunctivae. CVS: normal S1 and S2. RRR. No M/R/G. Resp: CTA B/L. No rhonchi, rales, crackles or wheezing. Abd: soft, non-tender, non-distended. MSK: Good ROM in BUE & BLE. No edema or rash. : Left labia and inner thigh erythematous, tender, firm. Lower pubic region tender, nonpitting edema, erythematous, softer than yesterday. Tenderness overall decreased from yesterday. Neuro: CN II-XII grossly intact. Strength 5/5 in BUE & BLE. Alert and oriented x3. Psych: appropriate mood and affect. Objective Labs 07/09/24 04:26 07/09/24 04:26 Labs: Laboratory Results - last 24 hr 07/09/24 04:26 WBC 19.6 H RBC 3.98 L Hgb 11.8 L Hct 35.0 L MCV 88 MCH 29.6 MCHC 33.7 RDW Std Deviation 44.2 Plt Count 308 D Neut % (Auto) 81 H Lymph % (Auto) 10 [place] % (Auto) 6 Eos % (Auto) 1 Baso % (Auto) 1 Neut # (Auto) 15.9 H Lymph # (Auto) 1.9 [place] # (Auto) 1.2 H Eos # (Auto) 0.2 Baso # (Auto) 0.1 Immature Gran # (Auto) 0.23 H Absolute Nucleated RBC 0.00 Immature Gran % 1 H Nucleated RBC % 0 Sodium 139 Potassium 3.6 Chloride 106 Carbon Dioxide 24.9 Anion Gap 8 BUN 14 Creatinine 1.3 Estim Creat Clear Calc 76.8 eGFR 49 L BUN/Creatinine Ratio 11 L Glucose 111 H Calculated Osmolality 279 Calcium 8.3 Corrected Calcium 8.9 Phosphorus 2.7 Magnesium 2.2 Total Bilirubin 0.6 AST < 10 ALT 11 Alkaline Phosphatase 106 Total Protein 5.7 Albumin 3.2 L Globulin 2.5 Albumin/Globulin Ratio 1.3 Quality Measures Quality Measures sepsis Current suspected stage: sepsis Possible source: skin/soft tissue Blood cultures ordered: completed in ED Antibiotic ordered: Yes Assessment & Plan Assessment Current Active Medications: Generic Name Dose Route Start Last Admin Trade Name Freq PRN Reason Stop Dose Admin Acetaminophen 650 mg 07/06/24 14:43 07/07/24 21:00 Acetaminophen 325 Mg Tablet PO 08/05/24 14:42 650 mg Q6H PRN Administration Fever >100.4 or pain Protocol Hydrocodone Bitart/Acetaminophen 1 tab 07/06/24 14:43 07/08/24 19:22 Hydrocodone/Apap 5/325 Tablet PO 07/11/24 14:42 1 tab Q4HR PRN Administration PAIN SCALE 4-10(Mod-Sev Dextrose 25 ml 07/06/24 14:53 Dextrose 50%-Water Inj 50 Ml Syringe IV 08/05/24 14:52 Q15MIN PRN BG 50-70 responsive npo pt Dextrose 50 ml 07/06/24 14:53 Dextrose 50%-Water Inj 50 Ml Syringe IV 08/05/24 14:52 Q15MIN PRN BG <50 OR BG <70 & pt unresponsive Docusate Sodium 100 mg 07/09/24 07:44 Docusate Sod 100 Mg Capsule PO 08/08/24 07:43 QDAY PRN CONSTIPATION Protocol Glucagon 1 mg 07/06/24 14:53 Glucagon Inj 1 Mg Vial IM Q15MIN PRN BG <70, and no IV access Heparin Sodium (Porcine) 5,000 unit 07/07/24 09:00 07/09/24 08:24 Heparin Sod Inj 5000 Unit/Ml Vial SC 07/21/24 08:59 5,000 unit Q12HR ULICES Administration Hydromorphone HCl 1 mg 07/07/24 08:36 Hydromorphone Inj 2 Mg/Ml Vial IVP 07/12/24 08:35 Q4HR PRN BREAKTHROUGH PAIN Protocol Sodium Chloride 1,000 mls @ 100 mls/hr 07/07/24 10:26 07/09/24 05:02 Ns IV 08/06/24 10:25 100 mls/hr .Q10H ULICES Administration Cefepime HCl 1 gm/ Sodium 50 mls @ 100 mls/hr 07/08/24 22:00 07/09/24 14:41 Chloride IV 07/14/24 10:59 100 mls/hr Q8HR ULICES Administration Vancomycin HCl 250 mls @ 120 mls/hr 07/08/24 10:00 07/09/24 10:01 Vancomycin/Water 1250 Mg Ivpb IV 07/15/24 09:59 120 mls/hr Q12H ULICES Administration Protocol Insulin Human Lispro 0 unit 07/06/24 17:00 07/09/24 07:27 Insulin Lispro (Admelog) 1 Unit/0.01 Ml Unit SC 08/05/24 16:59 Not Given AC ULICES Protocol Magnesium Hydroxide 30 ml 07/09/24 07:44 Milk Of Magnesia Susp 30 Ml Udc PO 08/08/24 07:43 QDAY PRN CONSTIPATION Protocol Ondansetron HCl 4 mg 07/06/24 14:43 07/07/24 14:52 Ondansetron Inj 2 Mg/Ml Inj 2 Ml IV 08/05/24 14:42 4 mg Q6H PRN Administration NAUSEA OR VOMITING Protocol Pharmacy Consult 1 each 07/07/24 09:00 Vancomycin Pharmacy To Dose 1 Each Each IV 08/06/24 08:59 QDAY PRN PROTOCOL Sennosides 1 tab 07/09/24 07:44 Senna Tablet PO 08/08/24 07:43 QDAY PRN CONSTIPATION Protocol Trazodone HCl 150 mg 07/07/24 21:00 07/08/24 21:03 Trazodone Hcl 50 Mg Tablet PO 08/06/24 20:59 150 mg HS LUICES Administration Plan 54 y/o F with PMHx significant for HTN, type 2 diabetes [id number], presented to ED from home with chief complaint of labial swelling/tenderness for 1 week and associated fevers x 4 days, admitted for cellulitis. #Cellulitis #Sepsis Patient presenting with chief complaint fevers for several days associated with left labial tenderness and swelling. On physical exam patient was found to have erythema and tenderness of left labial region indicative of cellulitis. Patient met 2/4 SIRS criteria: Leukocytosis 25.2, tachycardia 113. Patient was afebrile in ED but reports several days of fevers. Received 1 L bolus normal saline in the ED, along with Zosyn and vancomycin. RIVER CROSSING SUPERVISOR consulted. Patient lactic acid elevated 2.3, resolved with IVF. Pro-Rosendo 0.31. Patient looked slightly worse on physical exam: Lower pubic region now edematous (nonpitting) and tender, left inner thigh and left labia more edematous and firm. RIVER CROSSING SUPERVISOR consult recommended transfer to facility with RIVER CROSSING SUPERVISOR?oncology for deep evacuation of infection. MRI pelvis showed extensive cellulitis with no excising fasciitis or pockets amenable to drainage. Transfer canceled, patient to remain for medical management. Initial blood cultures grew GPC in 1/2 bottles. Repeat blood cultures drawn. Clindamycin was started due to suspicion for necrotizing fasciitis, discontinued after MRI showed no signs of necrotizing fasciitis. RIVER CROSSING SUPERVISOR signed off on patient. Urine culture negative -Vancomycin pharmacy dosing (started 07/06) -Cefepime 1 g IV every 8 hours (started 07/07) -Tylenol as needed for fevers or pain -[place] 5 every 4 hours as needed for pain -Dilaudid 1 g IV every 4 hours as needed for breakthrough pain -RIVER CROSSING SUPERVISOR consulted, appreciate recommendations -Zofran as needed for nausea -Blood culture pending #HUSAM, improving Patient presented with BUN 18 and creatinine 1.3, increased to BUN 22 and creatinine 1.7, eGFR 35. Possible etiology includes prerenal due to dehydration, potential ATN due to soft/low BP in setting of sepsis. 1 L bolus lactated Ringer's given. HUSAM improving with IVF. Patient received IVF: 100 mL/h normal saline, x 1 L/day, for 3 days -Avoid nephrotoxins as much as possible -Renally dose meds -Daily labs #Type 2 diabetes, patient history Patient history of diabetes, not insulin-dependent. A1c 5.4% as of 07/06/2024. -ISS #HTN, patient history Patient history hypertension, controlled with hydrochlorothiazide. Patient has not had high blood pressure during stay thus far. -Holding antihypertensives for now DVT prophylaxis: Heparin GI prophylaxis: None Diet: Carb consistent Lines: Peripheral IV Code status: Full code Plan of care discussed with senior resident Dr. Mccullough PGY?[address] Solorio. Duran De La Fuente MD PGY?1 Attending Provider Attestation/Addendum I have discussed and was present for the essential components of the history, physical examination, diagnosis, and treatment plan with the resident. I agree with the patient's care as documented by the resident and amended herein by me. Nii Solorio, . Patient seen and evaluated this AM. No acute events overnight, vital signs stable, patient afebrile, patient endorses pain and swelling are improved today. WBC downtrending, hemoglobin stable, will continue to follow blood and urine cultures, will continue vancomycin and cefepime at this time. Transfer not needed. Likely DC home in 48 to 72 hours pending continued improvement. Although this document has been carefully reviewed, there may still be some phonetic and other typographical errors. These errors are purely grammatical due to imperfections in the software program and should not be construed in any way to compromise the substance of the patient's medical care during this visit.
[2024-07-09 16:00] VITALS: BP 123/96; PULSE 94; RESP 19; TEMP 36.4; O2SAT 95
[2024-07-09 20:00] VITALS: BP 145/85; PULSE 78; RESP 22; TEMP 36.9; O2SAT 94
[2024-07-09] MEDS: traZODone HCL 50 MG TABLET 150 MG PO (21:01)
[2024-07-09 21:59] LABS: Vancomycin,Trough 17.8 mcg/mL (5.0-10.0)
[2024-07-10] VITALS: BP 134/81; PULSE 94; RESP 20; TEMP 36.3; O2SAT 94
[2024-07-10 04:00] VITALS: BP 124/78; PULSE 89; RESP 17; TEMP 36.1; O2SAT 93
[2024-07-10] MEDS: CEFEPIME INJ 1 GM in SODIUM CHLORIDE 0.9% 50 ML IV ×3 (05:35→22:27)
[2024-07-10 06:32] LABS: Basophils # (Auto) 0.1 Thou/mm3 (0.0-0.2); Basophils % (Auto) 1 % (0-2.5); Eosinophils # (Auto) 0.4 Thou/mm3 (0.0-0.5); Eosinophils % (Auto) 3 % (0-10); Hematocrit 36.9 % (36.0-46.0); Hemoglobin 12.4 g/dL (12.0-16.0); Immature Granulocytes % (Auto) 3 % (0-0); Immature Granulocytes Auto 0.42 Thou/mm3 (0.00-0.00); Lymphocytes # (Auto) 2.3 Thou/mm3 (1.0-4.8); Lymphocytes % (Auto) 17 % (10-50); Mean Corpuscular HGB Conc 33.6 g/dl (31.0-37.0); Mean Corpuscular Hemoglobin 29.7 pg (25.0-35.0); Mean Corpuscular Volume 88 fL (80-100); Monocytes % (Auto) 7 % (0-12); Neutrophils # (Auto) 9.6 Thou/mm3 (1.8-7.7); Neutrophils % (Auto) 69 % (37-80); Nucleated Red Blood Cell % 0 /100 WBC (0); Platelet Count 375 Thou/mm3 (140-440); RDW Standard Deviation 44.8 fL (36.4-46.3); Red Blood Count 4.18 Miln/mm3 (4.00-5.20); White Blood Count 13.9 Thou/mm3 (3.6-11.0)
[2024-07-10] MEDS: SODIUM CHLORIDE 0.9% 1000 ML 1,000 ML 100 ML IV (07:20)
[2024-07-10 07:31] LABS: Alanine Aminotransferase 10 U/L (10-49); Albumin, Serum 3.3 gm/dL (3.5-5.0); Albumin/Globulin Ratio 1.4 (1.2-2.2); Alkaline Phosphatase 93 U/L (46-116); Anion Gap 8 (7-16); Aspartate Amino Transferase 14 U/L (0-34); BUN/Creatinine Ratio 11 Ratio (12-20); Bilirubin,Total 0.4 mg/dL (0.3-1.2); Blood Urea Nitrogen 12 mg/dL (9-23); Calcium 8.2 mg/dL (8.3-10.6); Calcium (Corrected) 8.8 mg/dL (8.5-10.1); Carbon Dioxide 20.9 mMol/L (20.0-31.0); Chloride 110 mMol/L (98-107); Creatinine (Component) 1.1 mg/dL (0.6-1.3); Estimated Creatinine Clearance 90.8 mL/min (>60); Globulin 2.4 gm/dL (2.3-3.5); Glucose 106 mg/dL (74-106); Magnesium 2.1 mg/dL (1.6-2.6); Osmolality,Calculated 277 (275-295); Phosphorous 3.6 mg/dL (2.4-5.1); Potassium 3.4 mMol/L (3.4-5.1); Sodium 139 mMol/L (136-145); Total Protein 5.7 gm/dL (5.7-8.2); eGFR 59 See Note
[2024-07-10 08:00] VITALS: BP 108/61; PULSE 84; RESP 17; TEMP 36.7; O2SAT 95
[2024-07-10] MEDS: HEPARIN SOD INJ 5000 UNIT/ML VIAL SC ×2 (08:33→21:15)
--- NOTE | 2024-07-10 09:33 | ESPR_ITS ---
Documentation for date of: 07/10/24 Subjective Subjective Interval history: Patient was seen and examined at the bedside this morning. Patient reported that her pain has improved and still having discharge from the vaginal wall. She stated that her symptoms have been improving every day. She is not having difficulty in urination and no fever spikes were recorded overnight. No acute overnight events were reported. Patient is passing bowel movement. She was recommended to ambulate as tolerated. This morning, vitals were stable. Labs showed improvement in white count to 13.9. Hemoglobin remained stable. Chemistry panel was unremarkable. Kidney functions showed resolution of HUSAM with BUN 12 and creatinine 1.1. Vancomycin was discontinued and patient was started on doxycycline 100 mg twice daily given soft tissue infection. Fluids were discontinued. Will currently continue cefepime 1 g every 8 hourly. Blood cultures have been growing negative and MRSA screen was also negative. Will likely monitor her and anticipate discharge in next 24-48 hours. All labs and orders were reviewed. Exam Vital Signs Temp Pulse Resp BP Pulse Ox O2 Del Method 98.1 F 84 17 108/61 95 Room Air 07/10/24 08:00 07/10/24 08:00 07/10/24 08:00 07/10/24 08:00 07/10/24 08:00 07/10/24 08:00 Narrative Exam Gen: Well-developed and well-nourished. Obese. HEENT: NCAT, PERRLA, EOMI, MMM, anicteric conjunctivae. CVS: normal S1 and S2. RRR. No M/R/G. Resp: CTA B/L. No rhonchi, rales, crackles or wheezing. Abd: soft, non-tender, non-distended. MSK: Good ROM in BUE & BLE. No edema or rash. : Left labia and inner thigh erythematous, tender, firm. Lower pubic region tender, nonpitting edema, erythematous, softer than yesterday. Tenderness overall decreased from yesterday. Neuro: CN II-XII grossly intact. Strength 5/5 in BUE & BLE. Alert and oriented x3. Psych: appropriate mood and affect. Objective Labs 07/10/24 05:39 07/10/24 05:39 Labs: Laboratory Results - last 24 hr 07/09/24 07/10/24 21:23 05:39 WBC 13.9 H D RBC 4.18 Hgb 12.4 Hct 36.9 MCV 88 MCH 29.7 MCHC 33.6 RDW Std Deviation 44.8 Plt Count 375 D Neut % (Auto) 69 Lymph % (Auto) 17 [place] % (Auto) 7 Eos % (Auto) 3 Baso % (Auto) 1 Neut # (Auto) 9.6 H Lymph # (Auto) 2.3 [place] # (Auto) 1.0 H Eos # (Auto) 0.4 Baso # (Auto) 0.1 Immature Gran # (Auto) 0.42 H Absolute Nucleated RBC 0.00 Immature Gran % 3 H Nucleated RBC % 0 Sodium 139 Potassium 3.4 Chloride 110 H Carbon Dioxide 20.9 Anion Gap 8 BUN 12 Creatinine 1.1 Estim Creat Clear Calc 90.8 eGFR 59 L BUN/Creatinine Ratio 11 L Glucose 106 Calculated Osmolality 277 Calcium 8.2 L Corrected Calcium 8.8 Phosphorus 3.6 Magnesium 2.1 Total Bilirubin 0.4 AST 14 ALT 10 Alkaline Phosphatase 93 Total Protein 5.7 Albumin 3.3 L Globulin 2.4 Albumin/Globulin Ratio 1.4 Vancomycin Trough 17.8 H Quality Measures Quality Measures sepsis Current suspected stage: sepsis Possible source: skin/soft tissue Blood cultures ordered: completed in ED Antibiotic ordered: Yes Assessment & Plan Assessment Current Active Medications: Generic Name Dose Route Start Last Admin Trade Name Freq PRN Reason Stop Dose Admin Acetaminophen 650 mg 07/06/24 14:43 07/07/24 21:00 Acetaminophen 325 Mg Tablet PO 08/05/24 14:42 650 mg Q6H PRN Administration Fever >100.4 or pain Protocol Hydrocodone Bitart/Acetaminophen 1 tab 07/06/24 14:43 07/08/24 19:22 Hydrocodone/Apap 5/325 Tablet PO 07/11/24 14:42 1 tab Q4HR PRN Administration PAIN SCALE 4-10(Mod-Sev Dextrose 25 ml 07/06/24 14:53 Dextrose 50%-Water Inj 50 Ml Syringe IV 08/05/24 14:52 Q15MIN PRN BG 50-70 responsive npo pt Dextrose 50 ml 07/06/24 14:53 Dextrose 50%-Water Inj 50 Ml Syringe IV 08/05/24 14:52 Q15MIN PRN BG <50 OR BG <70 & pt unresponsive Docusate Sodium 100 mg 07/09/24 07:44 Docusate Sod 100 Mg Capsule PO 08/08/24 07:43 QDAY PRN CONSTIPATION Protocol Glucagon 1 mg 07/06/24 14:53 Glucagon Inj 1 Mg Vial IM Q15MIN PRN BG <70, and no IV access Heparin Sodium (Porcine) 5,000 unit 07/07/24 09:00 07/10/24 08:33 Heparin Sod Inj 5000 Unit/Ml Vial SC 07/21/24 08:59 5,000 unit Q12HR ULICES Administration Hydromorphone HCl 1 mg 07/07/24 08:36 Hydromorphone Inj 2 Mg/Ml Vial IVP 07/12/24 08:35 Q4HR PRN BREAKTHROUGH PAIN Protocol Sodium Chloride 1,000 mls @ 100 mls/hr 07/07/24 10:26 07/10/24 07:20 Ns IV 08/06/24 10:25 100 mls/hr .Q10H ULICES Administration Cefepime HCl 1 gm/ Sodium 50 mls @ 100 mls/hr 07/08/24 22:00 07/10/24 05:35 Chloride IV 07/14/24 10:59 100 mls/hr Q8HR ULICES Administration Insulin Human Lispro 0 unit 07/06/24 17:00 07/10/24 07:18 Insulin Lispro (Admelog) 1 Unit/0.01 Ml Unit SC 08/05/24 16:59 Not Given AC ULICES Protocol Magnesium Hydroxide 30 ml 07/09/24 07:44 Milk Of Magnesia Susp 30 Ml Udc PO 08/08/24 07:43 QDAY PRN CONSTIPATION Protocol Ondansetron HCl 4 mg 07/06/24 14:43 07/07/24 14:52 Ondansetron Inj 2 Mg/Ml Inj 2 Ml IV 08/05/24 14:42 4 mg Q6H PRN Administration NAUSEA OR VOMITING Protocol Sennosides 1 tab 07/09/24 07:44 Senna Tablet PO 08/08/24 07:43 QDAY PRN CONSTIPATION Protocol Trazodone HCl 150 mg 07/07/24 21:00 07/09/24 21:01 Trazodone Hcl 50 Mg Tablet PO 08/06/24 20:59 150 mg HS ULICES Administration Plan 54 y/o F with PMHx significant for HTN, type 2 diabetes [id number], presented to ED from home with chief complaint of labial swelling/tenderness for 1 week and associated fevers x 4 days, admitted for cellulitis. #Sepsis likely secondary to vaginal infection/cellulitis #Leukocytosis: Improving Patient presenting with chief complaint fevers for several days associated with left labial tenderness and swelling. On physical exam patient was found to have erythema and tenderness of left labial region indicative of cellulitis. Patient met 2/4 SIRS criteria: Leukocytosis 25.2, tachycardia 113. Patient was afebrile in ED but reports several days of fevers. Received 1 L bolus normal saline in the ED, along with Zosyn and vancomycin. COTTAGE ATTENDANT consulted. Patient lactic acid elevated 2.3, resolved with IVF. Pro-Rosendo 0.31. Patient looked slightly worse on physical exam: Lower pubic region now edematous (nonpitting) and tender, left inner thigh and left labia more edematous and firm. COTTAGE ATTENDANT consult recommended transfer to facility with COTTAGE ATTENDANT?oncology for deep evacuation of infection. MRI pelvis showed extensive cellulitis with no excising fasciitis or pockets amenable to drainage. Transfer canceled, patient to remain for medical management. Initial blood cultures grew GPC in 1/2 bottles. Repeat blood cultures are coming negative. MRSA screen negative. Clindamycin was started due to suspicion for necrotizing fasciitis, discontinued after MRI showed no signs of necrotizing fasciitis. COTTAGE ATTENDANT signed off on patient. Urine culture showed no growth Discontinued vancomycin and fluids were discontinued WBC count downtrending -Encouraged on ambulation as tolerated -Started doxycycline 100 mg IV twice daily, [07/10?] -Cefepime 1 g IV every 8 hours (started 07/07) -Tylenol as needed for fevers or pain -[place] 5 every 4 hours as needed for pain -Dilaudid 1 g IV every 4 hours as needed for breakthrough pain -COTTAGE ATTENDANT consulted, appreciate recommendations -Zofran as needed for nausea -Blood culture negative and MRSA screen negative -Potassium was repleted 20 mEq x 1 #HUSAM, resolving Patient presented with BUN 18 and creatinine 1.3, increased to BUN 22 and creatinine 1.7, eGFR 35. Possible etiology includes prerenal due to dehydration, potential ATN due to soft/low BP in setting of sepsis. 1 L bolus lactated Ringer's given. 07/10: BUN 12 and creatinine 1.1 with GFR 59 -Holding of fluids for now -Avoid nephrotoxins as much as possible -Renally dose meds -Daily labs #Type 2 diabetes, patient history Patient history of diabetes, not insulin-dependent. A1c 5.4% as of 07/06/2024. -ISS -Accu-Cheks with hypoglycemia protocol #HTN, patient history Patient history hypertension, controlled with hydrochlorothiazide. Patient has not had high blood pressure during stay thus far. -Holding antihypertensives for now Health maintenance: DVT prophylaxis: Heparin GI prophylaxis: None Diet: Carb consistent Lines: Peripheral IV Code status: Full code Disposition: Patient is admitted for sepsis due to vaginal cellulitis. Currently continuing IV antibiotic and waiting on final cultures. HUSAM resolved. Plan of care discussed with attending physician, Dr. Osmin Mccullough MD, PGY 2 Attending Provider Attestation/Addendum I have discussed and was present for the essential components of the history, physical examination, diagnosis, and treatment plan with the resident. I agree with the patient's care as documented by the resident and amended herein by me. Nii Solorio, DO. Patient seen and evaluated this AM. No acute events overnight, patient states she feels further improved today. Will continue antibiotics today, cefepime and oral doxycycline, discontinue vancomycin. I would like the patient to get up to chair or ambulate is much as possible. Will transition to oral antibiotics pending further improvement, likely DC home in 24 to 48 hours. Gynecology has signed off the case. Although this document has been carefully reviewed, there may still be some phonetic and other typographical errors. These errors are purely grammatical due to imperfections in the software program and should not be construed in any way to compromise the substance of the patient's medical care during this visit.
[2024-07-10] MEDS: DOXYCYCLINE INJ 100 MG in SODIUM CHLORIDE 0.9% (P) 100 ML IV ×2 (10:42→21:15)
[2024-07-10 10:46] VITALS: BMI 54.1
[2024-07-10 12:00] VITALS: BP 148/84; PULSE 81; RESP 17; TEMP 36.7; O2SAT 94
[2024-07-10] MEDS: POTASSIUM CHLORIDE 20 mEq TABCR PO (12:42)
[2024-07-10 16:00] VITALS: BP 145/82; PULSE 96; RESP 17; TEMP 36.8; O2SAT 98
[2024-07-10 20:00] VITALS: BP 151/92; PULSE 84; RESP 19; TEMP 36.4; O2SAT 95
[2024-07-10] MEDS: traZODone HCL 50 MG TABLET 150 MG PO (21:18)
[2024-07-11] VITALS: BP 123/75; PULSE 87; RESP 18; TEMP 36.4; O2SAT 93
[2024-07-11 04:00] VITALS: BP 139/87; PULSE 89; RESP 16; TEMP 36.2; O2SAT 94
[2024-07-11] MEDS: CEFEPIME INJ 1 GM in SODIUM CHLORIDE 0.9% 50 ML IV (05:30)
[2024-07-11 06:08] LABS: Basophils # (Auto) 0.1 Thou/mm3 (0.0-0.2); Basophils % (Auto) 1 % (0-2.5); Eosinophils # (Auto) 0.4 Thou/mm3 (0.0-0.5); Eosinophils % (Auto) 4 % (0-10); Hematocrit 35.6 % (36.0-46.0); Immature Granulocytes % (Auto) 7 % (0-0); Immature Granulocytes Auto 0.82 Thou/mm3 (0.00-0.00); Lymphocytes # (Auto) 2.8 Thou/mm3 (1.0-4.8); Lymphocytes % (Auto) 24 % (10-50); Mean Corpuscular HGB Conc 33.7 g/dl (31.0-37.0); Mean Corpuscular Hemoglobin 29.8 pg (25.0-35.0); Mean Corpuscular Volume 88 fL (80-100); Monocytes # (Auto) 0.8 Thou/mm3 (0.0-0.8); Monocytes % (Auto) 7 % (0-12); Neutrophils # (Auto) 6.7 Thou/mm3 (1.8-7.7); Neutrophils % (Auto) 57 % (37-80); Nucleated Red Blood Cell # 0.05 Thou/mm3 (0.00-0.00); Nucleated Red Blood Cell % 0 /100 WBC (0); Platelet Count 383 Thou/mm3 (140-440); RDW Standard Deviation 44.9 fL (36.4-46.3); Red Blood Count 4.03 Miln/mm3 (4.00-5.20); White Blood Count 11.7 Thou/mm3 (3.6-11.0)
[2024-07-11 06:43] LABS: Alanine Aminotransferase 12 U/L (10-49); Albumin, Serum 3.2 gm/dL (3.5-5.0); Albumin/Globulin Ratio 1.3 (1.2-2.2); Alkaline Phosphatase 78 U/L (46-116); Anion Gap 12 (7-16); Aspartate Amino Transferase 23 U/L (0-34); BUN/Creatinine Ratio 11 Ratio (12-20); Bilirubin,Total 0.3 mg/dL (0.3-1.2); Blood Urea Nitrogen 12 mg/dL (9-23); Calcium 8.4 mg/dL (8.3-10.6); Carbon Dioxide 21.3 mMol/L (20.0-31.0); Chloride 109 mMol/L (98-107); Creatinine (Component) 1.1 mg/dL (0.6-1.3); Estimated Creatinine Clearance 89.6 mL/min (>60); Globulin 2.4 gm/dL (2.3-3.5); Glucose 106 mg/dL (74-106); Osmolality,Calculated 282 (275-295); Phosphorous 4.1 mg/dL (2.4-5.1); Potassium 3.4 mMol/L (3.4-5.1); Sodium 142 mMol/L (136-145); Total Protein 5.6 gm/dL (5.7-8.2); eGFR 59 See Note
[2024-07-11 08:00] VITALS: BP 141/91; PULSE 85; RESP 19; TEMP 36.2; O2SAT 94
[2024-07-11] MEDS: HEPARIN SOD INJ 5000 UNIT/ML VIAL SC (08:59)
--- NOTE | 2024-07-11 10:20 | PC.NURSE ---
call to pharmacy, we have no 100 mL popper bags for pt's doxy
[2024-07-11] MEDS: DOXYCYCLINE INJ 100 MG in SODIUM CHLORIDE 0.9% (P) 100 ML IV (10:44)
[2024-07-11 12:00] VITALS: BP 132/72; PULSE 72; RESP 18; TEMP 36.1; O2SAT 99
--- NOTE | 2024-07-11 14:02 | ESDS_ITS ---
Planned Discharge Date 07/11/24 DS: Providers Provider Date of admission: 07/06/24 14:43 Primary care physician: Carol Man MD Admitting Provider: Chela Hand MD Attending Provider on Admission: Tejinder Solorio DO Consults: 07/06/24 13:50 Consult to Gynecology Stat Comment: Consulting Provider: Elsa Ariza 07/06/24 14:15 Consult to Gynecology Stat Comment: Consulting Provider: Elsa Ariza 07/07/24 10:26 Referral - Director Clinical Data Routine Service Needed for Transfer: ADMINISTRATIVE SUPPORT TECHNICIAN Addl Comments:: Patient required transfer to facility with ADMINISTRATIVE SUPPORT TECHNICIAN and oncology. Patient requires deep evacuation of soft tissue infection of left labial region, patient sepsis and infection is progressing despite IV antibiotics. Surface incision and drainage attempted without success in ED, requires more specialized facility for deep evacuation. Attending Provider on DC: Tejinder Solorio DO Discharging Provider: Duran De La Fuente MD DS: Diagnosis Problem List Completed Was Problem List Reviewed/Reconciled?: Yes Hospital Course Hospital Course Hospital course: 54 y/o F with PMHx significant for HTN, type 2 diabetes [id number], presented to ED from home with chief complaint of labial swelling/tenderness for 1 week and associated fevers x 4 days. In the ED drainage was attempted for was believed to be a cyst, unsuccessful. Patient denied weakness, lethargy, chills, shortness of breath, nausea, vomiting. Endorsed decreased appetite for past few days, and severe tenderness full left labial region with movement/pressure. Patient received 1 L bolus normal saline, lidocaine, morphine, Geyser, Zosyn, vancomycin in the ED. Drainage of suspected cyst was attempted without success. ADMINISTRATIVE SUPPORT TECHNICIAN was consulted, recommended admit to hospitalist team but wished to follow patient as consult. During stay MRI was ordered to assess for drainable pockets, none were noted. Patient did experience a 'rupture' of an area of swelling, with foul smelling purulent drainage. Patient treated inpatient with broad spectrum antibiotics de-escalated to doxycyline and cefepime. Patient had an HUSAM that was treated with several liters IVF during stay, resolved. Patient medically stable and clear for discharge. Discharge plan: You have been started on the following medications: -Doxycycline 100mg twice daily for 8 days -Augmentin 875 twice daily for 8 days Continue taking all other meds as previously prescribed Follow up with your PCP in 1-2 weeks. Return to ED if symptoms worsen Diagnoses: #Vulvar Cellulitis #Sepsis, resolved #HUSAM, improving #Type 2 diabetes, patient history #HTN, patient history Plan of care discussed with senior resident Dr. Fermin PGY-[address] Solorio. Duran De La Fuente MD PGY-1 Status at Discharge Functional status at discharge: independent ambulation Time Spent with Patient Time attestation: Total time spent providing and/or coordinating discharge services: Time spent: Greater than 30 minutes Exam Vital Signs Temp Pulse Resp BP Pulse Ox O2 Del Method 97.0 F 72 18 132/72 H 99 Room Air 07/11/24 12:00 07/11/24 12:00 07/11/24 12:00 07/11/24 12:00 07/11/24 12:00 07/11/24 12:00 Narrative Exam Gen: Well-developed and well-nourished. Obese. HEENT: NCAT, PERRLA, EOMI, MMM, anicteric conjunctivae. CVS: normal S1 and S2. RRR. No M/R/G. Resp: CTA B/L. No rhonchi, rales, crackles or wheezing. Abd: soft, non-tender, non-distended. MSK: Good ROM in BUE & BLE. No edema or rash. : Left labia and inner thigh erythematous, tender, firm. Lower pubic region tender, nonpitting edema, erythematous, softer than yesterday. Tenderness overall decreased from yesterday. Neuro: CN II-XII grossly intact. Strength 5/5 in BUE & BLE. Alert and oriented x3. Psych: appropriate mood and affect. Discharge Plan Plan Patient Disposition: HOME (Self Care) Disposition Comment: Stable Patient condition on transfer: Stable Prescriptions/Referrals Prescriptions/Med Rec: New acetaminophen [Pain Relief (acetaminophen)] 325 mg tablet 650 mg PO QID PRN (Reason: fever or pain) Qty: 60 0RF amoxicillin-pot clavulanate 875-125 mg tablet 1 tab PO BID Qty: 16 0RF doxycycline hyclate 100 mg capsule 100 mg PO BID Qty: 16 0RF Continued ergocalciferol (vitamin D2) [Vitamin D2] 1,250 mcg (50,000 unit) Capsule 1,250 mcg PO QWEEK gabapentin 800 mg Tablet 800 mg PO BID cyclobenzaprine 10 mg tablet 10 mg PO TID Rx Instructions: muscle relaxer trazodone 150 mg Tablet Extended Release 24 Hr 300 mg PO HS lisinopril-hydrochlorothiazide 20-25 mg tablet 1 tab PO QDAY Patient Comments: TAKE ONE TABLET BY MOUTH EVERY DAY FOR BLOOD PRESSURE Ozempic 0.25 mg or 0.5 mg (2 mg/3 mL) pen injector 1 mg SUBCUT QWEEK Patient Comments: INJECT 0.25 MG SUBCUTANEOUSLY ONCE A WEEK Referrals: Carol Man MD [Primary Care Provider] - Patient/Caregiver Discharge Instructions Discharge Activity: activity as tolerated Other Discharge Activity Instructions:: You have been started on the following medications: -Doxycycline 100mg twice daily for 8 days -Augmentin 875 twice daily for 8 days Continue taking all other meds as previously prescribed Follow up with your PCP in 1-2 weeks. Return to ED if symptoms worsen Education Materials: Understanding Sepsis Print Language: Luxembourgish Stand Alone Forms: [place] Award Info., Patient Portal Info Letter Discharge Order Discharge Orders: Discharge (Routine); Ordered 07/11/24 Ordered By: Dustin Fermin Quality Discharge Quality Measures VTE prophylaxis Attestestation Attestation I have discussed and was present for the essential components of the discharge history, physical examination, diagnosis, and discharge treatment plan with the resident. I agree with the patient's discharge care as documented by the resident and amended herein by me. Nii Solorio DO. The patient understood all discharge instructions, all questions were answered satisfactorily. The patient was instructed to return to the Emergency Department is symptoms worsened or persisted. Patient will be discharged on a course of doxycycline and Augmentin, see resident note above. Patient was stable, tolerating p.o. intake, ambulatory and afebrile at time of discharge. Patient cellulitis has significantly improved however it is recommended the patient follow-up with a primary care provider within 1 week of discharge for further evaluation. Although this document has been carefully reviewed, there may still be some phonetic and other typographical errors. These errors are purely grammatical due to imperfections in the software program and should not be construed in any way to compromise the substance of the patient's medical care during this visit.
== END 2024-07-11 12:17 | disposition home or self-care (01) | DRG 720 ==
LOC: SERX 11:54 → SERHOLD 15:05 → S3NX 20:10
PROVIDERS: Nurse Practitioner Family; Student in an Organized Health Care Education/Training Program; Admitting Provider Student in an Organized Health Care Education/Training Program; Emergency Provider Emergency Medicine; PCP Internal Medicine; Visit Provider Student in an Organized Health Care Education/Training Program
DX: A41.9 Sepsis, unspecified organism (principal); N76.2 Acute vulvitis; I10 Essential (primary) hypertension; E11.9 Type 2 diabetes mellitus without complications; N75.0 Cyst of Bartholin's gland; Z79.84 Long term (current) use of oral hypoglycemic drugs; E66.01 Morbid (severe) obesity due to excess calories; Z68.43 Body mass index [BMI] 50.0-59.9, adult; N17.9 Acute kidney failure, unspecified
CPT/HCPCS: 36415; 72195; 76705; 80053; 80202; 81001; 83036; 83605; 83735; 84100; 84145; 85025; 86140; 87040; 87077; 87081; 87086; 94664; 96365; 96366; 96367; 96372; 96375; 99285; J0692; J1643; J1815; J2270; J2405; J2543; J3370; J3371; J3372; J3475; J3490; J7030; J7040; J7050; J7120; Q0162; S0077; A9270; J0736

== ENCOUNTER → 2024-07-16 | Outpatient (CLI) | payer MEDICAID, SELFPAY ==
--- NOTE | 2024-07-16 11:15 | XR_ITS ---
Examination: Breast ultrasound, unilateral, left complete Date and time of exam: July 16, 2024 and 37 hours INDICATIONS: Mammogram February 27, 2024 10 mm nodule upper outer left breast Technique: Real-time juarez scale ultrasonographic imaging performed left breast including all 4 quadrants as well as nipple retroareolar and axillary region. Findings: 10:00 hyperechoic nodule 3 x 1 x 2 mm most consistent with lipoma IMPRESSION: BI-RADS Category 2: Benign findings
--- NOTE | 2024-07-16 11:45 | XR_ITS ---
Examination: Diagnostic digital mammography, unilateral, left Computer aided detection 3-D breast Tomosynthesis, unilateral Date and time of exam: July 16, 2024 1146 hrs. Indications: Mammogram February 27, 2024 10 mm nodule circumscribed outer left breast Technique: Nonmagnified MLO, CC views of the left breast have been obtained, reconstructed from 3-D Tomosynthesis images. R2 computer aided detection program utilized for evaluation of suspicious masses and/or abnormal calcifications. 3-D Tomosynthesis images obtained. Findings: Scattered areas of fibroglandular density 10 mm circumscribed nodule is confirmed outer upper left breast Impression: BI-RADS Category 0: Incomplete: Need additional imaging evaluation. Recommend this patient return for repeat left breast sonography with the radiologist in attendance.
== END | disposition home or self-care (01) ==
PROVIDERS: PCP Internal Medicine; Referring Provider Internal Medicine; Visit Provider Internal Medicine
DX: N63.21 Unspecified lump in the left breast, upper outer quadrant (principal)
CPT/HCPCS: 76641; 77061; 77065; G0279

== ENCOUNTER → 2024-12-27 | Outpatient (CLI) | payer MEDICAID, SELFPAY ==
--- NOTE | 2024-12-27 11:30 | XR_ITS ---
Exam: MRI knee without contrast, left Date and time of exam: December 27, 2024 1306 hours INDICATIONS: Patient fell 2 years ago with injury to the knee, generalized knee pain joint clicking joint locking stiffness swelling instability Technique: Multiple axial, coronal, and sagittal sections on the knee have been obtained. T2-Weighted sagittal, fat-suppressed images, TR 3,500, TE 62, T2 weighted coronal fat-saturated images, TR 3,500, TE 62 Proton density sagittal sections, TR 1800, TE 31. T-1 weighted coronal images, TR 524, TE 13.0 Findings: Medial meniscus anterior horn intact. Medial meniscus, body horizontal linear tear, extrusion of the body the medial meniscus from the joint space. Posterior horn medial meniscus horizontal linear tear communicating inferior articular surface near the inner margin sagittal image 6. Lateral meniscus anterior horn is intact Lateral meniscus, body is intact Posterior horn lateral meniscus is intact Anterior cruciate ligament appears intact. Posterior cruciate ligament appears intact. Knee effusion is large, suprapatellar joint plica Quadriceps and patellar tendons appear intact. There is no evidence of tendinosis. Inflammatory change or fracture of Hoffa's fat pad is not seen. Medial patellar facet demonstrates moderate thinning. Lateral patellar facet cartilage demonstrates moderate thinning. Trochlear cartilage demonstrates moderate thinning. Marrow signal increased medial femoral condyle Medial collateral ligament appears intact. No meniscocapsular separation is seen. Illiotibial band and fibular collateral ligament are intact. Biceps femoris tendons appear intact. Medial femoral condylar articular cartilage demonstrates severe thinning. Lateral femoral condylar articular cartilage demonstratesmoderate thinning. Tibial plateau cartilage demonstrates severe medial thinning. Impression: Tears of the body and posterior horn medial meniscus Severe thinning cartilage medial joint space
== END | disposition home or self-care (01) ==
LOC: SMRI 11:05
PROVIDERS: PCP Nurse Practitioner Family; Referring Provider Orthopaedic Surgery; Visit Provider Orthopaedic Surgery
DX: M25.862 Other specified joint disorders, left knee (principal); S83.242A Other tear of medial meniscus, current injury, left knee, initial encounter; X58.XXXA Exposure to other specified factors, initial encounter
CPT/HCPCS: 73721

== ENCOUNTER → 2025-01-04 | Outpatient (CLI) | payer MEDICAID, SELFPAY ==
--- NOTE | 2025-01-04 14:37 | EKG_ITS ---
[facility] Test Date: 2025-01-04 Pat Name: GRACE SAHA Department: Room: - Gender: Female Technical Account Manager: RT STUDENT : 1970 Requested By: Carol Man Order Number: [id number] Reading MD: Carol Man Measurements Intervals [place] Rate: 91 P: 37 KS: 162 QRS: 21 QRSD: 85 T: 14 QT: 363 QTc: 447 Interpretive Statements SINUS RHYTHM LOW QRS VOLTAGE IN PRECORDIAL LEADS [QRS DEFLECTION < 1.0 mV IN CHEST LEADS] Compared to ECG 01/27/2020 15:39:52 No significant changes /store/S0/[id number].pdf
== END | disposition home or self-care (01) ==
PROVIDERS: Referring Provider Internal Medicine; Visit Provider Internal Medicine
DX: Z01.810 Encounter for preprocedural cardiovascular examination (principal)
CPT/HCPCS: 93005

== ENCOUNTER 2025-03-14 18:43 | Emergency (ER) | payer MEDICAID, SELFPAY ==
[2025-03-14 18:45] VITALS: BMI 48.5
[2025-03-14 19:37] VITALS: BP 136/89; PULSE 98; RESP 20; TEMP 37.1; O2SAT 94
--- NOTE | 2025-03-14 19:44 | PD.EDLOWEX ---
Lower Extremity Injury RME/HPI General Chief Complaint: Extremity Injury, Lower Stated Complaint: LEFT KNEE PAIN S/P FALL 02/24, S/P SURGERY 02/08 Time Seen by Provider: 03/14/25 19:28 Arrival date/time: 03/14/25 18:43 RME / HPI RME / HPI Narrative: 54-year-old female with past medical history of diabetes, hypertension who had a ligament repair arthroscopically about 1 month ago and subsequently fell on her left knee about 2 weeks ago when she began to first experience this pain which is worse with flexion of her knee and better with extension. X-ray initially taken at the time of her fall at her orthopedic doctor's office was negative for any acute fracture or dislocation per patient. Patient has only been taking Tylenol for her pain. Patient states that she has called her orthopedist since then to notify him that her pain is persistent and he stated for her to try to initiate physical therapy as soon as possible which she has been unable to schedule at this time. Patient denies any numbness, tingling, weakness, fever or recurrence of injury. Dr. Fiore performed surgery in [place]. Related Data Home Medications ?Medication ?Instructions ?Recorded ?Confirmed ergocalciferol (vitamin D2) 1,250 1,250 mcg PO QWEEK 06/15/20 07/09/24 mcg (50,000 unit) capsule (Vitamin D2) gabapentin 800 mg tablet 800 mg PO BID 10/03/20 07/07/24 cyclobenzaprine 10 mg tablet 10 mg PO TID 07/07/24 07/07/24 trazodone 150 mg tablet,extended 300 mg PO HS 07/07/24 07/08/24 release 24 hr lisinopril 20 1 tab PO QDAY 07/09/24 07/09/24 mg-hydrochlorothiazide 25 mg tablet semaglutide 0.25 mg or 0.5 mg (2 1 mg subcut QWEEK 07/09/24 07/09/24 mg/3 mL) subcutaneous pen injector (Ozempic) Previous Rx's ?Medication ?Instructions ?Recorded acetaminophen 325 mg tablet (Pain 650 mg (2 x 325 mg) PO QID PRN 07/11/24 Relief (acetaminophen)) fever or pain #60 tabs amoxicillin 875 mg-potassium 1 tab PO BID #16 tabs 07/11/24 clavulanate 125 mg tablet doxycycline hyclate 100 mg capsule 100 mg PO BID #16 caps 07/11/24 Allergies Allergy/AdvReac Type Severity Reaction Status Date / Time iodine Allergy Severe chest Verified 03/14/25 18:46 tightness, headache ED Exam Narrative Physical exam: Constitutional: Vital Signs Reviewed. Well appearing. No acute distress. Not toxic appearing. Head: Normocephalic, atraumatic. Eyes: Conjunctiva clear. ENT: Mucous membranes moist. Neck: Trachea midline. Normal range of motion. No nuchal rigidity. Respiratory: Normal effort. No respiratory distress or accessory muscle use. Neuro: Alert and oriented. Speech normal. No focal gross motor or sensory deficits observed. Extremity: right knee with well-healed arthroscopic scars anteriorly. Patient with minimal tenderness to palpation on her medial joint line. Patient with reasonable he pain-free range of motion from 80 to 10 degrees. No circumferential erythema, edema, swelling, significant heat, ecchymosis. Left lower extremity remains soft and DP pulses 2+ regular rate and rhythm. Skin: Warm, dry, normal color. Psych: Pleasant. Normal affect. Cooperative. Course Course Course Narrative: I am concern for internal knee derangement for her left knee. I advised her the necessity of getting an x-ray to rule out an occult fracture or dislocation however patient refused that she states that she got an x-ray with her orthopedist at the time this pain initially started and she in fact came here only for an MRI. I offered her pain management including a Toradol shot however she declined and just wants to see her orthopedic surgeon. There is no signs of infection and left lower extremity remains distally neurovasc intact with soft compartments. Patient will follow-up with her orthopedist in 1 to 2 days and strict ER return precautions advised if she changes her mind Quality Measures none Orders Category Date Time Status XR knee comp LT 4V Stat Exams 03/14/25 20:03 Ordered Ketorolac Inj [Toradol Inj] Med 03/14/25 19:47 Discontinued 30 mg IM X1 ONE as noted Reevaluation(s) Reevaluation #1: At the time of reassessment, the patient remains alert and oriented ?3 with GCS 15. Vitals are normal, pain is controlled, and the patient is tolerating oral intake without nausea or vomiting. The patient is agreeable to discharge and verbalizes understanding of the diagnosis, studies, treatment plan, and strict ER return precautions as discussed in the ED. All concerns were addressed, and the patient is comfortable with the plan. Vital Signs Vital signs: Vital Signs Temperature 98.7 F 03/14/25 19:37 Pulse Rate 98 03/14/25 19:37 Respiratory Rate 20 03/14/25 19:37 Blood Pressure 136/89 H 03/14/25 19:37 Pulse Oximetry (%) 94 L 03/14/25 19:37 Oxygen Delivery Method Room Air 03/14/25 19:37 Extremity Injury, Lower MDM Narrative MDM Narrative:: MDM as noted in ER Course Patient data External records reviewed:: None Clinical information provided by:: patient Social determinants that could affect healthcare access:: none Patient has the following chronic illnesses:: diabetes, HTN How is presenting disease/condition affected by chronic disease/condition?: uneffected by Evaluation data The following diagnostics were reviewed and interpreted by me:: other (specify) Lab and/or radiology exams considered but not ordered:: pt refused as noted, aware of risks or permanent deformity and the benefit of timely tx Interpretation Summary: na Medications / Prescriptions Medications or Prescriptions considered but not ordered:: I considered prescription management (both outpatient prescriptions AND drug treatment in the ER) and decided that this was necessary and was prescribed as charted. Medication administrations:: Medication Administration History Discontinued Medications Ketorolac Tromethamine (Ketorolac Inj 60 Mg/2 Ml Vial) 30 mg IM X1 ONE Stop: 03/14/25 19:48 Last Admin: 03/14/25 20:08 Dose: Not Given Documented By: GB Non-Admin Reason: Patient Refused refused Consultations Consultation(s) initiated? (list below): Yes Consultation #1 (Physician, Specialty, Details): Dr. Ferrari was consulted regarding this case and he advised x-ray patient safe for discharge to follow-up with her surgeon Diagnosis Extremity Injury, Lower Differential Diagnosis: acute internal derangement of knee Most likely diagnosis given after review of the tests above:: Internal knee derangement Admission Indicated Admission indicated?: not indicated Admission Request Was there a request for admission?: No Disposition Plan Disposition Plan: Discharge Discharge Attestation Discharge Attestation: The patient and all family members were given an opportunity to ask questions and understood the discharge instructions. Discharge instructions specifically effects, indications for sooner follow up or return to the emergency department, and the expected course of current diagnosis. Patient condition: Stable Discharge Plan Plan Patient Disposition: HOME (Self Care) Discharge Disposition comment: Eloped prior to receiving discharge instruction. Plan was for pt to f/u with her orthopedic doctor within 24 hours. Patient condition on transfer: Stable Prescriptions/Referrals Prescriptions/Med Rec: No Action ergocalciferol (vitamin D2) [Vitamin D2] 1,250 mcg (50,000 unit) Capsule 1,250 mcg PO QWEEK gabapentin 800 mg Tablet 800 mg PO BID cyclobenzaprine 10 mg tablet 10 mg PO TID Rx Instructions: muscle relaxer trazodone 150 mg Tablet Extended Release 24 Hr 300 mg PO HS lisinopril-hydrochlorothiazide 20-25 mg tablet 1 tab PO QDAY Patient Comments: TAKE ONE TABLET BY MOUTH EVERY DAY FOR BLOOD PRESSURE Ozempic 0.25 mg or 0.5 mg (2 mg/3 mL) pen injector 1 mg SUBCUT QWEEK Patient Comments: INJECT 0.25 MG SUBCUTANEOUSLY ONCE A WEEK acetaminophen [Pain Relief (acetaminophen)] 325 mg tablet 650 mg PO QID PRN (Reason: fever or pain) Qty: 60 0RF amoxicillin-pot clavulanate 875-125 mg tablet 1 tab PO BID Qty: 16 0RF doxycycline hyclate 100 mg capsule 100 mg PO BID Qty: 16 0RF Problem List Clinical Impression: Knee pain Patient/Caregiver Discharge Instructions Education Materials: Knee Pain Print Language: Nepali Stand Alone Forms: [place] Award Info., Patient Portal Info Letter
== END 2025-03-14 20:09 | disposition home or self-care (01) ==
PROVIDERS: Emergency Provider Emergency Medicine
DX: M25.562 Pain in left knee (principal); W19.XXXA Unspecified fall, initial encounter
CPT/HCPCS: 99281